=== PATIENT | female | born 1985 | race African-American/Black ===

== ENCOUNTER 2018-12-18 14:01 | Inpatient (IN) | payer OTHER ==
[2018-12-18 14:28] VITALS: BMI 22.6
--- NOTE | 2018-12-18 15:30 | HP ---
"CIWA Score Nausea/Vomitin-Int. Nausea w/Dry Heave (nausea w/ vomiting) Muscle Tremors: 3 Anxiety: 4-Mod. Anxious/Guarded Agitation: 4-Moderately Restless Paroxysmal Sweats: 3 (Increased facial moisture) Orientation: 1-Uncertain about Date Tacttile Disturbances: 0-None Auditory Disturbances: 0-None Visual Disturbances: 0-None Headache: 2-Mild CIWA-Ar Total Score: 21 - Admission Criteria OASAS Guidelines: Admission for Medically Managed Detox: Requires at least one of the followin. CIWA greater than 12 2. Seizures within the past 24 hours 3. Delirium tremens within the past 24 hours 4. Hallucinations within the past 24 hours 5. Acute intervention needed for co occurring medical disorder 6. Acute intervention needed for co occurring psychiatric disorder 7. Severe withdrawal that cannot be handled at a lower level of care (continued vomiting, continued diarrhea, abnormal vital signs) requiring intravenous medication and/or fluids 8. Patient presents the following: CIWA greater than 12 Admission Criteria Met: Admission criteria met Admission ROS [facility] - [facility] Chief Complaint: Alcohol withdrawal Allergies/Adverse Reactions: Allergies Allergy/AdvReac Type Severity Reaction Status Date / Time No Known Allergies Allergy Verified 12/18/18 14:21 History of Present Illness: States here for detox from heroin and alcohol. Alcohol use began at age 18. States drinks 3 -4 nips (approx 150-200 ml) daily. Crack use began at age 18. Uses IV Heroin use began at age 18. Intermittent relapse last few days IV. Denies sharing needles or works. On the H.E.L.P. MMTP x approx 5 months. - Current Methadone dose is 70 mg. State last taken this am at [facility]. Denies seizures or blackouts. Overdose x 2 - last OD about 4 months ago. Longest length of sobriety = 8 months. Was in [facility] for 1.5 days for evaluation of depression. PMHx: Fibromyalgia (states takes gabapentin), Hep C, burning w/ urination MHHx: Insomnia, Depression. Denies thoughts of harming self or others. [facility] has a MH Provider at [facility] Search Terms: Stephanie Moon, 1985 Search Date: 12/18/2018 03:26:18 PM The Drug Utilization Report below displays all of the controlled substance prescriptions, if any, that your patient has filled in the last twelve months. The information displayed on this report is compiled from pharmacy submissions to the Department, and accurately reflects the information as submitted by the pharmacies. This report was requested by: Clementina Johnson | Reference #: [id number] There are no results for the search terms that you entered. Patient Name: STEPHANIE MOON Date: 1985 Address: [address] [place] [address] Sex: Female Rx Written Rx Dispensed Drug Strength Quantity Days Supply Prescriber Name 12/02/2015 01/08/2016 LORAZEPAM 1 MG TABLET 90.0 30 TIFFANIE PHILLIPS, ROSSY Exam Limitations: No Limitations - Ebola screening Have you traveled outside of the country in the last 21 days: No (N) Have you had contact with anyone from an Ebola affected area: No Have you been sick,other than usual withdrawal symptoms: No (Denies recent measles exposure) Do you have a fever: No - Review of Systems Constitutional: Chills, Diaphoresis, Changes in sleep (Difficulty staying asleep. - States takes ambien) EENT: reports: Blurred Vision Respiratory: reports: No Symptoms reported Cardiac: reports: No Symptoms Reported GI: reports: Nausea, Vomiting, Abdominal cramping : reports: Burning (Burning w/ urination x 2-3 days) Musculoskeletal: reports: Other (Flexeril, neurontin for fibromyalgia.) Integumentary: reports: No Symptoms Reported Neuro: reports: Headache (Mild) Endocrine: reports: No Symptoms Reported Hematology: reports: No Symptoms Reported Psychiatric: reports: Judgement Intact, Orientated x3 (Unsure of exact date -), Agitated, Anxious, Depressed (Denies thoughts of harming self or others.) Patient History - PPD History Previous Implant?: Yes Documented Results: Negative w/o proof Implanted On Prior [facility] Admission?: No PPD to be Administered?: Yes - Reproductive History Patient is a Female of Child Bearing Age (11 -55 yrs old): Yes Last Menstrual Period: 12/18/18 Patient : No - Smoking Cessation Smoking history: Current every day smoker Have you smoked in the past 12 months: Yes Aproximately how many cigarettes per day: 20 Hx Chewing Tobacco Use: No Initiated information on smoking cessation: Yes 'Breaking Loose' booklet given: 12/18/18 - Substance & Tx. History Hx Alcohol Use: Yes Hx Substance Use: Yes Substance Use Type: Alcohol, Cocaine, Heroin Hx Substance Use Treatment: Yes (detox) - Substances abused Heroin Substance route: Injection Frequency: Daily Amount used: 10 bags /day Age of first use: 18 Date of last use: 12/17/18 Crack Substance route: Injection Frequency: Daily Amount used: $100/DAY Age of first use: 18 Date of last use: 12/17/18 Alcohol Substance route: Oral Frequency: Daily Amount used: 3-4 nips Age of first use: 18 Date of last use: 12/17/18 Admission Physical Exam [facility] - Vital Signs Vital Signs: Vital Signs - 24 hr 12/18/18 14:15 Temperature 98 F Pulse Rate 73 Respiratory 18 Rate Blood Pressure 118/76 - Physical General Appearance: Yes: Nourished, Mild Distress, Tremorous, Sweating ( Increased facial mositure), Anxious HEENTM: Yes: EOMI, Hearing grossly Normal, Normocephalic, Normal Voice, MARIA ESTHER ( Pupils = 2 mm), Pharynx Normal Respiratory: Yes: Lungs Clear, Normal Breath Sounds, No Respiratory Distress Neck: Yes: No masses,lesions,Nodules, Supple Breast: Yes: Breast Exam Deferred Cardiology: Yes: Regular Rhythm, Regular Rate, S1, S2 (Split) Abdominal: Yes: Flat, Soft, Increased Bowel Sounds, Tenderness (Epigastric tenderness upon palpatin. No guarding. No rebound.) Genitourinary: Yes: Burning Back: Yes: Normal Inspection Musculoskeletal: Yes: full range of Motion, Gait Steady Extremities: Yes: Normal Capillary Refill, Non-Tender, Tremors (Mild tremors of hands) Neurological: Yes: tool distributor II-XII NML intact, Fully Oriented, Alert, Motor Strength 5/5 Integumentary: Yes: Normal Color, Warm, Track Pugh Lymphatic: Yes: Within Normal Limits - Diagnostic (1) Alcohol dependence with uncomplicated withdrawal Current Visit: Yes Status: Acute (2) History of fibromyalgia Current Visit: Yes Status: Chronic (3) Nicotine dependence, uncomplicated Current Visit: Yes Status: Chronic Qualifiers: Nicotine product type: cigarettes Qualified Code(s): F17.210 - Nicotine dependence, cigarettes, uncomplicated (4) Cocaine dependence, uncomplicated Current Visit: Yes Status: Chronic (5) Methadone maintenance therapy patient Current Visit: Yes Status: Chronic Comment: Blaise OTP on Methadone (6) History of hepatitis C Current Visit: No Status: Chronic Comment: Not treated (7) Insomnia Current Visit: Yes Status: Acute Qualifiers: Insomnia type: unspecified Qualified Code(s): G47.00 - Insomnia, unspecified Cleared for Admission S - Detox or Rehab [facility] Level of Care: Medically Managed Detox Regimen/Protocol: Librium Claeared for Rehab Admission: No Breathalyzer - Breathalyzer Breathalyzer: 0 Urine Drug Screen - Test Device Lot number: [id number] Expiration date: 09/01/20 - Control Is test valid?: Yes - Results Drug screen NEGATIVE: No Urine drug screen results: LENARD-Cocaine, MTD-Methadone Inpatient Rehab Admission - Rehab Decision to Admit Inpatient rehab admission?: No"
[2018-12-18] MEDS ORDERED: MENTHOL/PHENOL 1 EACH UD MM PRN (16:13)
[2018-12-18] MEDS ORDERED: NICOTINE POLACRILEX 2 MG GUM BUC PRN (16:13)
[2018-12-18] MEDS ORDERED: BISMUTH SUBSALICYLATE 524 MG/30 ML UD PO PRN (16:13)
[2018-12-18] MEDS ORDERED: PROCHLORPERAZINE MALEATE 5 MG TABLET PO PRN (16:13)
[2018-12-18] MEDS ORDERED: MAGNESIUM HYDROX 2400MG/30ML ORAL SUSPENSION 30 ML CUP PO PRN (16:13)
[2018-12-18] MEDS ORDERED: ACETAMINOPHEN 325 MG TABLET (FP) PO PRN ×2 (16:13)
[2018-12-18] MEDS ORDERED: MELATONIN 5 MG TABLETS PO PRN ×2 (16:13→22:00)
[2018-12-18] MEDS ORDERED: MAG HYDROX/AL HYDROX/SIMETH 30 ML UNIT-DOSE CUP PO PRN (16:13)
[2018-12-18] MEDS ORDERED: MAGNESIUM CITRATE 300 ML BOTTLE PO PRN (16:13)
[2018-12-18] MEDS ORDERED: CYCLOBENZAPRINE HCL 5 MG TABLET PO PRN (16:16)
[2018-12-18] MEDS: PANTOPRAZOLE 20 MG TABLET (FP) PO SCH (17:25)
[2018-12-18] MEDS: chlordiazePOXIDE HCL 25 MG CAPSULE PO SCH ×2 (17:25→22:44)
[2018-12-18] MEDS: chlordiazePOXIDE HCL 25 MG CAPSULE PO PRN (19:39)
[2018-12-18] MEDS: IBUPROFEN 400 MG TABLET (FP) PO PRN (19:39)
[2018-12-18] MEDS ORDERED: THIAMINE HCL 100 MG TABLET (FP) PO SCH (22:00)
[2018-12-18] MEDS: GABAPENTIN 100 MG CAPSULE (FP) PO SCH (22:46)
[2018-12-19] MEDS: chlordiazePOXIDE HCL 25 MG CAPSULE PO PRN (01:47)
[2018-12-19] MEDS: chlordiazePOXIDE HCL 25 MG CAPSULE PO SCH ×2 (05:36→10:37)
[2018-12-19 09:59] LABS: ALBUMIN 3.3 g/dl (3.4-5.0); BILIRUBIN,TOTAL 0.3 mg/dL (0.2-1); CALCIUM 8.5 mg/dL (8.5-10.1); CREATININE 0.8 mg/dL (0.55-1.3); POTASSIUM 3.8 mmol/L (3.5-5.1)
[2018-12-19] MEDS ORDERED: PRENATAL VITAMINS W/ FOLIC ACID TABLET (FP) PO SCH (10:00)
[2018-12-19] MEDS ORDERED: METHADONE HCL 10 MG TABLET PO ONE (10:00)
[2018-12-19] MEDS ORDERED: NICOTINE 21 MG/24 HOURS TOPICAL PATCH TD SCH (10:00)
--- NOTE | 2018-12-19 10:05 | PN ---
S CIWA - CIWA Score Nausea/Vomitin-Mild Nausea/No Vomiting Muscle Tremors: 4-Moderate,w/Arms Extend Anxiety: 3 Agitation: 3 Paroxysmal Sweats: 1-Minimal Palms Moist Orientation: 2-Disoriented Date<2 days Tacttile Disturbances: 0-None Auditory Disturbances: 0-None Visual Disturbances: 0-None Headache: 2-Mild CIWA-Ar Total Score: 16 [facility] Progress Note (SOAP) Subjective: patient reporting that she is in methadone program taking 70 mg po daily methadone needed to be verified patient stated that she is taking ativan every two hours daily "my doctor prescribed for me" psychiatrist referral in place patient refuses to change librium to ativen "I want both" Objective: 12/19/18 10:04 Vital Signs Temperature 97.8 F 12/19/18 06:35 Pulse Rate 92 H 12/19/18 06:35 Respiratory Rate 16 12/19/18 06:35 Blood Pressure 95/64 12/19/18 06:35 O2 Sat by Pulse Oximetry (%) Laboratory Last Values Sodium 145 mmol/L (136-145) 12/19/18 07:00 Potassium 3.8 mmol/L (3.5-5.1) 12/19/18 07:00 Chloride 110 mmol/L (98-107) H 12/19/18 07:00 Carbon Dioxide 27 mmol/L (21-32) 12/19/18 07:00 Anion Gap 7 MMOL/L (8-16) L 12/19/18 07:00 BUN 13 mg/dL (7-18) 12/19/18 07:00 Creatinine 0.8 mg/dL (0.55-1.3) 12/19/18 07:00 Est GFR (CKD-EPI)AfAm 112.27 12/19/18 07:00 Est GFR (CKD-EPI)NonAf 96.87 12/19/18 07:00 Random Glucose 80 mg/dL (74-106) 12/19/18 07:00 Calcium 8.5 mg/dL (8.5-10.1) 12/19/18 07:00 Total Bilirubin 0.3 mg/dL (0.2-1) 12/19/18 07:00 AST 14 U/L (15-37) L 12/19/18 07:00 ALT 23 U/L (13-61) 12/19/18 07:00 Alkaline Phosphatase 59 U/L (45-117) 12/19/18 07:00 Total Protein 6.0 g/dl (6.4-8.2) L 12/19/18 07:00 Albumin 3.3 g/dl (3.4-5.0) L 12/19/18 07:00 POC Urine HCG, Qual Negative 12/18/18 14:50 lab noted Assessment: 12/19/18 10:04 alcohol withdrawal sx anxiety Plan: continue detox discuss risks of ativan + librium
[2018-12-19 10:14] LABS: HEMOGLOBIN 12.4 GM/dL (10.7-15.3); MCH 24.2 pg (25.7-33.7); MCHC 31.7 g/dl (32.0-36.0); MEAN CELL VOLUME 76.5 fl (80-96); PLATELET COUNT 173 K/MM3 (134-434); RDW 15.3 % (11.6-15.6); WHITE BLOOD COUNT 5.3 K/mm3 (4.0-10.0)
[2018-12-19] MEDS: GABAPENTIN 100 MG CAPSULE (FP) PO SCH (10:37)
[2018-12-19] MEDS: PANTOPRAZOLE 20 MG TABLET (FP) PO SCH (10:37)
[2018-12-19] MEDS ORDERED: METHADONE HCL 40 MG DISPERSABLE TABLET PO ONE (12:04)
--- NOTE | 2018-12-19 12:06 | CONSULT ---
[facility] Psychiatric Consult - Data Date of interview: 12/19/18 Admission source: [facility] Identifying data: First admission to [facility] for this 3 y/o AA female from [place] ancestry, self-referred for detoxification (opioid). Interviewed at [address] [place] [address]. Patient is single, no dependents, domiciled and currently employed. Substance Abuse History: Confirmed by the patient in this session. Details of addictions are described in current [facility] report : Smoking history: Current every day smoker. Have you smoked in the past 12 months: Yes. Aproximately how many cigarettes per day: 20. Hx Chewing Tobacco Use: No. Initiated information on smoking cessation: Yes. 'Breaking Loose' booklet given: 12/18/18. - Substance & Tx. History. Hx Alcohol Use: Yes. Hx Substance Use: Yes. Substance Use Type : Alcohol, Cocaine, Heroin. Hx Substance Use Treatment: Yes (detox). - Substances abused. Heroin. Substance route: Injection. Frequency: Daily. Amount used: 10 bags /day. Age of first use: 18. Date of last use: 12/17/18. Crack. Substance route: Injection. Frequency: Daily. Amount used: $100/ DAY. Age of first use: 18. Date of last use: 12/17/18. Alcohol. Substance route: Oral. Frequency: Daily. Amount used: 3-4 nips. Age of first use: 18. Date of last use: 12/17/18 Medical History: Remarkable for hepatitis C and fibromyalgia. Psychiatric History: No reported history of psychiatric hospitalizations. Patient indicates that she sees a psychiatrist at [facility] [place] [facility] for medication management (wellbutrin 300 mg/day + ativan 3 mg/day in divided doses + zolpidem 10 mg/hs. Diagnosed with MDD and Anxiety Disorder. Ms Moon is also on methadone maintenance (100 mg/day) at the [facility]). Denies history of sucide attempts. Physical/Sexual Abuse/Trauma History: Patient denies. Additional Comment: Urine drug screen results: LENARD-Cocaine, MTD-Methadone. Noted. Mental Status Exam - Mental Status Exam Alert and Oriented to: Time, Place, Person Cognitive Function: Good Patient Appearance: Well Groomed Mood: Nervous, Withdrawn, Anxious Affect: Mood Congruent Patient Behavior: Fatigued, Appropriate, Cooperative Speech Pattern: Clear Voice Loudness: Normal Thought Process: Intact, Goal Oriented Thought Disorder: Not Present Hallucinations: Denies Suicidal Ideation: Denies Homicidal Ideation: Denies Insight/Judgement: Poor Sleep: Poorly, Difficulty falling asleep Appetite: Good Gait/Station: Normal Psychiatric Findings - Problem List ([place] 1, 2,3) (1) Alcohol dependence with uncomplicated withdrawal Current Visit: Yes Status: Acute (2) Opioid dependence on agonist therapy Current Visit: Yes Status: Chronic (3) Cocaine dependence, uncomplicated Current Visit: Yes Status: Chronic (4) Nicotine dependence, uncomplicated Current Visit: Yes Status: Chronic Qualifiers: Nicotine product type: cigarettes Qualified Code(s): F17.210 - Nicotine dependence, cigarettes, uncomplicated (5) Substance induced mood disorder Current Visit: Yes Status: Chronic (6) History of depression Current Visit: Yes Status: Chronic (7) Insomnia Current Visit: Yes Status: Chronic Qualifiers: Insomnia type: unspecified Qualified Code(s): G47.00 - Insomnia, unspecified - Initial Treatment Plan Initial Treatment Plan: Psychoeducation. Sleep hygiene. AA/NA meetings. Detoxification in progress. Medications : seroquel 50 mg po hs + wellbutrin ( immediate release) 150 mg po bid at 10 am + 4 pm. Side effects/benefits of both drugs are discussed with the patient. Made aware of potential for seizures, sedation and metabolic syndrome. Patient endorses history of good tolerability and effectiveness. Consented verbally to adhere to this regimen. Observation.
[2018-12-19] MEDS ORDERED: buPROPion HCL 100 MG TABLET PO ONE (13:15)
[2018-12-19] MEDS: IBUPROFEN 400 MG TABLET (FP) PO PRN (13:26)
[2018-12-19 13:47] VITALS: BP 103/66; PULSE 89; TEMP 97.2
[2018-12-19] MEDS ORDERED: buPROPion HCL 75 MG TABLET PO SCH (16:00)
[2018-12-19] MEDS ORDERED: chlordiazePOXIDE HCL 25 MG CAPSULE PO SCH (17:00)
--- NOTE | 2018-12-19 20:32 | DS ---
[facility] Detox Discharge Summary Admission Date: 12/18/18 Discharge Date: 12/19/18 - History Present History: Alcohol Dependence, Cocaine Dependence, Opioid Dependence, MMTP Additional Comments: DESPITE EFFORTS BY JUSTICE COURT JUDGE AND BY NURSING STAFF TO ADDRESS PATIENT'S MEDICAL NEEDS / CONCERNS, PATIENT DOES NOT WISH TO REMAIN TO COMPLETE DETOX REGIMEN. RISKS OF LEAVING DETOX UNIT AGAINST MEDICAL ADVICE AND PRIOR TO COMPLETION OF DETOX REGIMEN EXPLAINED TO PATIENT. PATIENT ADVISED TO GO IMMEDIATELY TO NEAREST ER SHOULD ANY INTOLERABLE WITHDRAWAL / DETOX SYMPTOMS DEVELOP AT ANY TIME. PATIENT ALSO ADVISED TO FOLLOW-UP WITH [facility] ([place], [place]) SOON POSSIBLE AFTER DISCHARGE FROM DETOX FOR HISTORY OF METHADONE MAINTENANCE THERAPY. PATIENT VERBALIZED UNDERSTANDING OF ALL INFORMATION / RECOMMENDATIONS PRESENTED TO HIM PRIOR TO DEPARTURE FROM DETOX UNIT. PATIENT LEFT DETOX UNIT IN STABLE MEDICAL CONDITION. Pertinent Past History: Fibromyalgia, Hep C, Insomnia, History Of Depression, Nicotine Dependence, M.M.T.P. - Physical Exam Results Vital Signs: Vital Signs Temperature 97.2 F L 12/19/18 13:46 Pulse Rate 89 12/19/18 13:46 Respiratory Rate 18 12/19/18 13:46 Blood Pressure 103/66 12/19/18 13:46 O2 Sat by Pulse Oximetry (%) Pertinent Admission Physical Exam Findings: WITHDRAWAL SYMPTOMS. Laboratory Tests 12/18/18 12/19/18 12/19/18 14:50 07:00 07:00 WBC 5.3 RBC 5.10 Hgb 12.4 Hct 39.0 MCV 76.5 L MCH 24.2 L MCHC 31.7 L RDW 15.3 Plt Count 173 MPV 11.0 Sodium 145 Potassium 3.8 Chloride 110 H Carbon Dioxide 27 Anion Gap 7 L BUN 13 Creatinine 0.8 Est GFR (CKD-EPI)AfAm 112.27 Est GFR (CKD-EPI)NonAf 96.87 Random Glucose 80 Calcium 8.5 Total Bilirubin 0.3 AST 14 L ALT 23 Alkaline Phosphatase 59 Total Protein 6.0 L Albumin 3.3 L POC Urine HCG, Qual Negative RPR Titer 12/19/18 07:00 WBC RBC Hgb Hct MCV MCH MCHC RDW Plt Count MPV Sodium Potassium Chloride Carbon Dioxide Anion Gap BUN Creatinine Est GFR (CKD-EPI)AfAm Est GFR (CKD-EPI)NonAf Random Glucose Calcium Total Bilirubin AST ALT Alkaline Phosphatase Total Protein Albumin POC Urine HCG, Qual RPR Titer Nonreactive LABS NOTED. - Treatment Hospital Course: Detox Protocol Followed, Detoxed Safely - Medication Discharge Medications: Ambulatory Orders Bupropion HCl [Wellbutrin -] 300 mg PO DAILY 12/18/18 - Diagnosis (1) Alcohol dependence with uncomplicated withdrawal Status: Acute (2) Cocaine dependence, uncomplicated Status: Chronic (3) History of fibromyalgia Status: Chronic (4) History of hepatitis C Status: Chronic (5) Insomnia Status: Chronic Qualifiers: Insomnia type: unspecified Qualified Code(s): G47.00 - Insomnia, unspecified (6) Methadone maintenance therapy patient Status: Chronic (7) Nicotine dependence, uncomplicated Status: Chronic Qualifiers: Nicotine product type: cigarettes Qualified Code(s): F17.210 - Nicotine dependence, cigarettes, uncomplicated (8) History of depression Status: Chronic (9) Opioid dependence on agonist therapy Status: Chronic (10) Substance induced mood disorder Status: Chronic - AMA Did Patient Leave Against Medical Advice: Yes (PATIENT DID NOT WISH TO REMAIN TO COMPELTE DETOX REGIMEN.)
[2018-12-19] MEDS ORDERED: QUEtiapine FUMARATE 50 MG TABLET PO SCH (22:00)
[2018-12-20] MEDS ORDERED: METHADONE HCL 10 MG TABLET PO SCH (06:00)
[2018-12-20] MEDS ORDERED: METHADONE HCL 40 MG DISPERSABLE TABLET PO SCH (06:00)
--- NOTE | 2018-12-20 12:13 | EKG ---
Test Reason : Blood Pressure : / mmHG Vent. Rate : 069 BPM Atrial Rate : 069 BPM P-R Int : 176 ms QRS Dur : 094 ms QT Int : 398 ms P-R-T Axes : 057 081 054 degrees QTc Int : 426 ms NORMAL SINUS RHYTHM NORMAL ECG NO PREVIOUS ECGS AVAILABLE Confirmed by MD Sha, Brennen ([id number]) on 12/20/2018 12:13:16 PM Referred By: LONNIE HENDERSON Confirmed By:Brennen Dalton MD
[2018-12-20] MEDS ORDERED: chlordiazePOXIDE HCL 10 MG CAPSULE PO SCH (17:00)
[2018-12-20] MEDS ORDERED: chlordiazePOXIDE HCL 10 MG CAPSULE PO PRN (17:00)
[2018-12-21] MEDS ORDERED: chlordiazePOXIDE HCL 10 MG CAPSULE PO SCH (17:00)
== END 2018-12-19 17:13 | disposition left against medical advice (07) | DRG 894 ==
LOC: YASAS 14:01 → Y3N 15:58
PROVIDERS: ADMIT Surgery; ATTEND Surgery
PROC: HZ2ZZZZ Detoxification Services for Substance Abuse Treatment (ICD-10-PCS; principal; 2018-12-18)
DX: F10.230 Alcohol dependence with withdrawal, uncomplicated (principal); F11.20 Opioid dependence, uncomplicated; F14.20 Cocaine dependence, uncomplicated; F17.213 Nicotine dependence, cigarettes, with withdrawal; F19.24 Other psychoactive substance dependence with psychoactive substance-induced mood disorder; F41.9 Anxiety disorder, unspecified; F32.9 Major depressive disorder, single episode, unspecified; G47.00 Insomnia, unspecified; B18.2 Chronic viral hepatitis C; Z86.59 Personal history of other mental and behavioral disorders; Z87.39 Personal history of other diseases of the musculoskeletal system and connective tissue
CPT/HCPCS: 36415; 80053; 81025; 85027; 86593; 93005; 93010

== ENCOUNTER 2019-01-10 08:55 | Inpatient (IN) | payer OTHER ==
[2019-01-10 09:48] VITALS: BMI 21.4
--- NOTE | 2019-01-10 11:15 | HP ---
COWS - Scale Resting Pulse: 2= MN 101-120 Sweatin= Chills/Flushing Restless Observation: 0= Sits Still Pupil Size: 0= Normal to Room Light Bone or Joint Aches: 4=Acute Joint/Muscle Pain Runny Nose/ Eye Tearin= Runny Nose/Eyes GI Upset > 30mins: 2= Nausea/Diarrhea Tremor Observation: 0= None Yawning Observation: 0= None Anxiety or Irritability: 2=Irritable/Anxious Goose Flesh Skin: 0=Smooth Skin COWS Score: 13 CIWA Score Nausea/Vomitin Muscle Tremors: 1-None Visible, but [place] Anxiety: 4-Mod. Anxious/Guarded Agitation: 0-Normal Activity Paroxysmal Sweats: 2 Orientation: 1-Uncertain about Date Tacttile Disturbances: 0-None Auditory Disturbances: 0-None Visual Disturbances: 0-None Headache: 2-Mild CIWA-Ar Total Score: 12 - Admission Criteria OASAS Guidelines: Admission for Medically Managed Detox: Requires at least one of the followin. CIWA greater than 12 2. Seizures within the past 24 hours 3. Delirium tremens within the past 24 hours 4. Hallucinations within the past 24 hours 5. Acute intervention needed for co occurring medical disorder 6. Acute intervention needed for co occurring psychiatric disorder 7. Severe withdrawal that cannot be handled at a lower level of care (continued vomiting, continued diarrhea, abnormal vital signs) requiring intravenous medication and/or fluids 8. Admission [facility] Allergies/Adverse Reactions: Allergies Allergy/AdvReac Type Severity Reaction Status Date / Time No Known Allergies Allergy Verified 01/10/19 09:39 History of Present Illness: pt here requesting 2 pints liquor /day since 2 weeks ago , prior to which she was not drinking " that much " , denies seizures or tremors , latest use this morning , current symptoms as above heroin : 10 bags/day ivdu in hands , needles from the store , denies sharing or re-using , latest use this morning , current symptoms as above , first age of use 18 cocaine : unable to quantify . pt is very poor historian , asleep , arousable by verbal stimuli for brief moments then falls back asleep . tobacco : 1/2 ppd PMHX : denies meds : denies lmp 4 weeks ago , no children Search Terms: gerardo olmstead, 12/12/1984 Search Date: 01/10/2019 12:46:50 PM The Drug Utilization Report below displays all of the controlled substance prescriptions, if any, that your patient has filled in the last twelve months. The information displayed on this report is compiled from pharmacy submissions to the Department, and accurately reflects the information as submitted by the pharmacies. This report was requested by: Rianna Ramos | Reference #: [id number] There are no results for the search terms that you entered. Exam Limitations: Clinical Condition, Intoxication - Ebola screening Have you traveled outside of the country in the last 21 days: No (N) Have you had contact with anyone from an Ebola affected area: No Do you have a fever: No - Review of Systems Constitutional: See HPI EENT: reports: See HPI Respiratory: reports: See HPI Cardiac: reports: No Symptoms Reported GI: reports: No Symptoms Reported : reports: No Symptoms Reported Musculoskeletal: reports: See HPI Integumentary: reports: See HPI Neuro: reports: See HPI, Other (drowsy , falls asleep throughout interview , awakened by verbal stimuli) Endocrine: reports: No Symptoms Reported Psychiatric: reports: Disorientated Patient History - Patient Medical History Hx Asthma: No Hx Chronic Obstructive Pulmonary Disease (COPD): No Hx Cardiac Disorders: No Hx Hypertension: No Hx Seizures: No Hx Diabetes: No Hx Gastrointestinal Disorders: No Hx Genitourinary Disorders: No Hx Sexually Transmitted Disorders: No Hx Renal Disease (ESRD): No Hx Depression: Yes Hx Suicide Attempt: No Hx Schizophrenia: No - Patient Surgical History Past Surgical History: No - PPD History Date: 12/20/18 - Reproductive History Last Menstrual Period: 12/18/18 - Smoking Cessation Smoking history: Current every day smoker Have you smoked in the past 12 months: Yes Aproximately how many cigarettes per day: 20 Hx Chewing Tobacco Use: No Initiated information on smoking cessation: No - Substances abused Heroin Substance route: Injection Frequency: Daily Amount used: 10 bags /day Age of first use: 18 Date of last use: 01/10/19 Crack Substance route: Smoking Frequency: Daily Amount used: 10BAGS Age of first use: 33 Date of last use: 01/10/19 Alcohol Substance route: Oral Frequency: Daily Amount used: 2 PTS VODKA Age of first use: 18 Date of last use: 01/09/19 Family Disease History - Family Disease History Family History: Unable to Obtain Admission Physical Exam [facility] - Vital Signs Vital Signs: Vital Signs - 24 hr 01/10/19 09:39 Temperature 99.2 F Pulse Rate 102 H Respiratory 18 Rate Blood Pressure 114/70 - Physical General Appearance: Yes: Disheveled, Intoxicated HEENTM: Yes: EOMI, Hearing grossly Normal, Normocephalic, Normal Voice, Nasal Congestion, Rhinorrhea Respiratory: Yes: Lungs Clear, Normal Breath Sounds, No Respiratory Distress, No Accessory Muscle Use Neck: Yes: No masses,lesions,Nodules, Trachea in good position Cardiology: Yes: Regular Rhythm, Regular Rate, S1, S2, Tachycardia Abdominal: Yes: Non Tender, Soft Musculoskeletal: Yes: Back pain, Muscle Pain Extremities: Yes: Normal Range of Motion, Non-Tender Neurological: Yes: Confused, Disoriented, Depressed Affect Integumentary: Yes: Warm, Track Pugh (dorsum of bilateral hands) - Diagnostic (1) Opioid dependence Current Visit: Yes Status: Acute Qualifiers: Substance use status: with intoxication (2) Alcohol dependence with uncomplicated withdrawal Current Visit: Yes Status: Acute (3) Nicotine dependence, uncomplicated Current Visit: Yes Status: Chronic Qualifiers: Nicotine product type: cigarettes Qualified Code(s): F17.210 - Nicotine dependence, cigarettes, uncomplicated (4) Cocaine dependence, uncomplicated Current Visit: Yes Status: Chronic Breathalyzer - Breathalyzer Breathalyzer: 0 Urine Drug Screen - Test Device Lot number: [id number] Expiration date: 09/29/20 - Control Is test valid?: Yes - Results Drug screen NEGATIVE: No Urine drug screen results: LENARD-Cocaine, FEN-Fentanyl, MOP-Opiates, MTD-Methadone , BZO-Benzodiazepines Inpatient Rehab Admission - Rehab Decision to Admit Inpatient rehab admission?: No
[2019-01-10] MEDS ORDERED: NICOTINE POLACRILEX 2 MG GUM BUC PRN (13:09)
[2019-01-10] MEDS ORDERED: MAGNESIUM HYDROX 2400MG/30ML ORAL SUSPENSION 30 ML CUP PO PRN (13:09)
[2019-01-10] MEDS ORDERED: MELATONIN 5 MG TABLETS PO PRN (13:09)
[2019-01-10] MEDS ORDERED: hydrOXYzine PAMOATE 25 MG CAPSULE (FP) PO PRN (13:09)
[2019-01-10] MEDS ORDERED: MENTHOL/PHENOL 1 EACH UD MM PRN (13:09)
[2019-01-10] MEDS ORDERED: IBUPROFEN 400 MG TABLET (FP) PO PRN (13:09)
[2019-01-10] MEDS ORDERED: ACETAMINOPHEN 325 MG TABLET (FP) PO PRN ×2 (13:09)
[2019-01-10] MEDS ORDERED: MAG HYDROX/AL HYDROX/SIMETH 30 ML UNIT-DOSE CUP PO PRN (13:09)
[2019-01-10] MEDS ORDERED: BISMUTH SUBSALICYLATE 262 MG/15 ML BTL PO PRN (13:09)
[2019-01-10] MEDS ORDERED: MAGNESIUM CITRATE 300 ML BOTTLE PO PRN (13:09)
[2019-01-10] MEDS ORDERED: diazePAM 5 MG TABLET PO PRN (13:13)
[2019-01-10] MEDS ORDERED: cloNIDine HCL 0.1 MG TABLET PO PRN (13:14)
[2019-01-10] MEDS: diazePAM 5 MG TABLET PO SCH ×2 (15:14→23:06)
--- NOTE | 2019-01-10 16:59 | EKG ---
Test Reason : Blood Pressure : / mmHG Vent. Rate : 097 BPM Atrial Rate : 097 BPM P-R Int : 172 ms QRS Dur : 092 ms QT Int : 332 ms P-R-T Axes : 044 082 037 degrees QTc Int : 421 ms NORMAL SINUS RHYTHM NORMAL ECG WHEN COMPARED WITH ECG OF 18-DEC-2018 15:52, NO SIGNIFICANT CHANGE WAS FOUND Confirmed by MD Salgado Daniel ([id number]) on 01/10/2019 4:58:47 PM Referred By: Confirmed By:Madi Salgado MD
[2019-01-10] MEDS ORDERED: THIAMINE HCL 100 MG TABLET (FP) PO SCH (22:00)
[2019-01-10] MEDS ORDERED: METHADONE HCL 10 MG TABLET (FOR DETOX USE ONLY) PO ONE (23:00)
[2019-01-11] MEDS: diazePAM 5 MG TABLET PO SCH (06:20)
[2019-01-11] MEDS ORDERED: chlordiazePOXIDE HCL 25 MG CAPSULE PO PRN (08:15)
[2019-01-11 08:26] VITALS: BP 106/49; PULSE 68; TEMP 96.8
--- NOTE | 2019-01-11 08:48 | PN ---
[facility] Progress Note Note: pt found out that her family member who is on same unit is signing out now she wants to leave. Pt had insisted on leaving because she wants to get high. Earlier today pt had asked to have her regimen changed from valium to librium because it has helped in the past and her medication regimen was changed as per her request. Pt was spoken to that she will be safe here and her medication was changed but she still insisted on leaving. Pt signed out AMA.
[2019-01-11] MEDS ORDERED: PRENATAL VITAMINS W/ FOLIC ACID TABLET (FP) PO SCH (10:00)
[2019-01-11] MEDS ORDERED: METHADONE HCL 10 MG TABLET (FOR DETOX USE ONLY) PO ONE (10:00)
[2019-01-11] MEDS ORDERED: chlordiazePOXIDE HCL 25 MG CAPSULE PO SCH (11:00)
[2019-01-11] MEDS ORDERED: PNEUMOC 13-VAL CONJ-DIP CRM/PF 0.5 ML DISP.SYRIN IM ONE (12:00)
[2019-01-11] MEDS ORDERED: PNEUMOCOCCAL 23 VACCINE 0.5 ML VIAL IM ONE (12:00)
[2019-01-11] MEDS ORDERED: diazePAM 5 MG TABLET PO SCH (14:00)
[2019-01-12] MEDS ORDERED: diazePAM 5 MG TABLET PO ONE (06:00)
[2019-01-12] MEDS ORDERED: METHADONE HCL 10 MG TABLET (FOR DETOX USE ONLY) PO ONE (10:00)
[2019-01-12] MEDS ORDERED: chlordiazePOXIDE HCL 25 MG CAPSULE PO SCH (11:00)
[2019-01-13] MEDS ORDERED: METHADONE HCL 10 MG TABLET (FOR DETOX USE ONLY) PO ONE (10:00)
[2019-01-13] MEDS ORDERED: chlordiazePOXIDE HCL 10 MG CAPSULE PO SCH (11:00)
[2019-01-14] MEDS ORDERED: METHADONE HCL 5 MG TABLET (FOR DETOX USE ONLY) PO ONE (06:00)
[2019-01-14] MEDS ORDERED: chlordiazePOXIDE HCL 10 MG CAPSULE PO SCH (11:00)
== END 2019-01-11 09:08 | disposition left against medical advice (07) | DRG 894 ==
LOC: YASAS 08:55 → Y6N 13:36
PROVIDERS: ADMIT Surgery; ATTEND Surgery
PROC: HZ2ZZZZ Detoxification Services for Substance Abuse Treatment (ICD-10-PCS; principal; 2019-01-10)
DX: F10.230 Alcohol dependence with withdrawal, uncomplicated (principal); F11.20 Opioid dependence, uncomplicated; F14.20 Cocaine dependence, uncomplicated; F17.210 Nicotine dependence, cigarettes, uncomplicated
CPT/HCPCS: 81025; 93005; 93010

== ENCOUNTER 2019-01-24 19:51 | Inpatient (IN) | payer OTHER ==
[2019-01-24 23:21] VITALS: BMI 20.2
--- NOTE | 2019-01-25 01:20 | HP ---
"COWS - Scale Resting Pulse: 0= [place] 80 or Below Sweatin=Flushed/Facial Moisture Restless Observation: 1= Difficult to Sit Still Pupil Size: 2= Moderately Dilated (Pupils = 5 mm) Bone or Joint Aches: 1= Mild Discomfort Runny Nose/ Eye Tearin= Runny Nose/Eyes GI Upset > 30mins: 1= Stomach Cramp Tremor Observation: 2= Slight Tremor Visible Yawning Observation: 1= 1-2x During Session Anxiety or Irritability: 1=Feels Anxious/Irritable Goose Flesh Skin: 0=Smooth Skin COWS Score: 13 CIWA Score Nausea/Vomitin-Mild Nausea/No Vomiting Muscle Tremors: 3 (Slight tremors visible) Anxiety: 2 Agitation: 2 Paroxysmal Sweats: 3 (Increased facial moisture) Orientation: 1-Uncertain about Date Tacttile Disturbances: 0-None Auditory Disturbances: 0-None Visual Disturbances: 0-None Headache: 3-Moderate (sharp headache in middle of head.) CIWA-Ar Total Score: 15 - Admission Criteria OASAS Guidelines: Admission for Medically Managed Detox: Requires at least one of the followin. CIWA greater than 12 2. Seizures within the past 24 hours 3. Delirium tremens within the past 24 hours 4. Hallucinations within the past 24 hours 5. Acute intervention needed for co occurring medical disorder 6. Acute intervention needed for co occurring psychiatric disorder 7. Severe withdrawal that cannot be handled at a lower level of care (continued vomiting, continued diarrhea, abnormal vital signs) requiring intravenous medication and/or fluids 8. Patient presents the following: CIWA greater than 12 Admission Criteria Met: Admission criteria met Admission ROS [facility] Chief Complaint: having heroin and alcohol withdrawal. Allergies/Adverse Reactions: Allergies Allergy/AdvReac Type Severity Reaction Status Date / Time No Known Allergies Allergy Verified 01/24/19 23:12 History of Present Illness: 33 yo presents for detox w/ a hx alcohol, benzo, and opiate use disorder. Patient last here in November and December 2018 and signed out AMA the day after both admissions. Alcohol use began at age 15. States now drinks 2 Pints vodka daily. Crack use began at age 18. Smokes. Heroin use began at age 18. States current use is 10 bags/day IV. Denies sharing needles or works. States left the [facility] program after last admission. Ativan use occ about 5 mg/day. Nicotine use 2 cig/day. Suboxone - [facility] took this am Methadone - [facility] took yesterday. Denies seizures or blackouts. Overdose x 2 - last OD about 4 months ago. Longest length of sobriety = 8 months. PMHx: Fibromyalgia (states takes gabapentin), Hep C, MHHx: Insomnia, Depression. Denies thoughts of harming self or others. [facility] takes [facility] and [facility]ilify. [facility] has a MH Provider at . [facility] Search Terms: Melisa Mono, 1985 Search Date: 01/25/2019 01:18:24 AM The Drug Utilization Report below displays all of the controlled substance prescriptions, if any, that your patient has filled in the last twelve months. The information displayed on this report is compiled from pharmacy submissions to the Department, and accurately reflects the information as submitted by the pharmacies. This report was requested by: Clementina Johnson | Reference #: [id number] There are no results for the search terms that you entered. Exam Limitations: No Limitations - Ebola screening Have you traveled outside of the country in the last 21 days: No (N) Have you had contact with anyone from an Ebola affected area: No Have you been sick,other than usual withdrawal symptoms: No (Denies recent exposure to measles) Do you have a fever: No - Review of Systems Constitutional: Chills, Diaphoresis, Changes in sleep (Difficulty falling asleep ) EENT: reports: Nose Congestion Respiratory: reports: No Symptoms reported Cardiac: reports: No Symptoms Reported GI: reports: Nausea, Indigestion (Occ heart burn) : reports: Other (Slow urination. Denies blood, burning or pain.) Musculoskeletal: reports: Back Pain (Upper and lower back pain r/t being sick.) Integumentary: reports: No Symptoms Reported Neuro: reports: Headache (sharp headache in middle of head. Denies hx) Endocrine: reports: No Symptoms Reported Hematology: reports: No Symptoms Reported Psychiatric: reports: Judgement Intact, Orientated x3, Agitated, Anxious, Depressed (Denies thoughts of harming self or others.) Patient History - Patient Medical History Hx Asthma: No Hx Chronic Obstructive Pulmonary Disease (COPD): No Hx Cardiac Disorders: No Hx Hypertension: No Hx Seizures: No Hx Diabetes: No Hx Gastrointestinal Disorders: No Hx Genitourinary Disorders: No Hx Sexually Transmitted Disorders: No Hx Renal Disease (ESRD): No Hx Depression: Yes Hx Suicide Attempt: No Hx Schizophrenia: No - Patient Surgical History Past Surgical History: No Hx Neurologic Surgery: No Hx Cataract Extraction: No Hx Cardiac Surgery: No Hx Lung Surgery: No Hx Breast Surgery: No Hx Breast Biopsy: No Hx Abdominal Surgery: No Hx Appendectomy: No Hx Cholecystectomy: No Hx Genitourinary Surgery: No Hx Section: No Hx Orthopedic Surgery: No Anesthesia Reaction: No - PPD History Previous Implant?: Yes Implanted On Prior [facility] Admission?: Yes Date: 12/20/18 Results: Not read PPD to be Administered?: No - Reproductive History Patient is a Female of Child Bearing Age (11 -55 yrs old): Yes Last Menstrual Period: 12/18/18 Patient : No - Smoking Cessation Smoking history: Current every day smoker Have you smoked in the past 12 months: Yes Aproximately how many cigarettes per day: 2 Hx Chewing Tobacco Use: No Initiated information on smoking cessation: Yes 'Breaking Loose' booklet given: 01/25/19 - Substance & Tx. History Hx Alcohol Use: Yes Hx Substance Use: Yes Substance Use Type: Alcohol, Cocaine, Heroin, Opiates, Tranquilizers Hx Substance Use Treatment: Yes (detox, past [facility]) - Substances abused Heroin Substance route: Injection Frequency: Daily Amount used: 10 bags /day Age of first use: 18 Date of last use: 01/24/19 Crack Substance route: Smoking Frequency: Daily Amount used: 10 bags Age of first use: 33 Date of last use: 01/24/19 Alcohol Substance route: Oral Frequency: Daily Amount used: 2 PTS VODKA Age of first use: 18 Date of last use: 01/24/19 Other Other (specify): Ativan Substance route: Oral Frequency: 3-6 times per week Amount used: 5 mg Age of first use: 18 Date of last use: 01/24/19 Admission Physical Exam [facility] - Vital Signs Vital Signs: Vital Signs - 24 hr 01/24/19 23:14 Temperature 98.1 F Pulse Rate 71 Respiratory 18 Rate Blood Pressure 105/69 - Physical General Appearance: Yes: Mild Distress, Thin, Tremorous (Slight tremors visible) , Irritable, Sweating (Increased facial moisture), Anxious HEENTM: Yes: EOMI (Jerking movement of eyes upon lateral gaze), Hearing grossly Normal, Normocephalic, Normal Voice, MARIA ESTHER (Pupils = 5 mm), Pharynx Normal, Nasal Congestion, Rhinorrhea Respiratory: Yes: Lungs Clear, Normal Breath Sounds, No Respiratory Distress Neck: Yes: No masses,lesions,Nodules, Supple Breast: Yes: Breast Exam Deferred Cardiology: Yes: Regular Rate, S1, S2, Irregular Abdominal: Yes: Non Tender, Flat, Soft, Increased Bowel Sounds Genitourinary: Yes: Within Normal Limits Back: Yes: Normal Inspection Musculoskeletal: Yes: full range of Motion, Gait Steady Extremities: Yes: Normal Capillary Refill, Normal Range of Motion, Tremors ( Slight tremors visible) Neurological: Yes: 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 NML intact (Jerking movement of eyes upon lateral gaze), Alert, Motor Strength 5/5, Normal Response Integumentary: Yes: Normal Color, Warm, Track Pugh (w/o increased warmth or erythema), Other (Superficial abrasions both heels (L) > (R).) Lymphatic: Yes: Within Normal Limits - Diagnostic (1) Opioid dependence with withdrawal Current Visit: Yes Status: Acute Comment: States no longer on [facility]MTP (2) Alcohol dependence with uncomplicated withdrawal Current Visit: Yes Status: Acute (3) Cocaine dependence, uncomplicated Current Visit: Yes Status: Chronic (4) History of fibromyalgia Current Visit: Yes Status: Chronic (5) History of hepatitis C Current Visit: Yes Status: Chronic Comment: Not treated (6) Nicotine dependence, uncomplicated Current Visit: Yes Status: Chronic Qualifiers: Nicotine product type: cigarettes Qualified Code(s): F17.210 - Nicotine dependence, cigarettes, uncomplicated (7) Sedative, hypnotic or anxiolytic use disorder, mild, abuse Current Visit: Yes Status: Acute (8) Abrasion of heel Current Visit: Yes Status: Chronic Qualifiers: Encounter type: subsequent encounter Laterality: unspecified laterality Qualified Code(s): S90.819D - Abrasion, unspecified foot, subsequent encounter Comment: Both heels Cleared for Admission S - Detox or Rehab [facility] Level of Care: Medically Managed Detox Regimen/Protocol: Methadone/Librium Claeared for Rehab Admission: No Breathalyzer - Breathalyzer Breathalyzer: 0 Urine Drug Screen - Test Device Lot number: [id number] Expiration date: 09/29/20 - Control Is test valid?: Yes - Results Drug screen NEGATIVE: No Urine drug screen results: LENARD-Cocaine, FEN-Fentanyl, MOP-Opiates, MTD-Methadone , BZO-Benzodiazepines Inpatient Rehab Admission - Rehab Decision to Admit Inpatient rehab admission?: No"
[2019-01-25] MEDS ORDERED: MAGNESIUM HYDROX 2400MG/30ML ORAL SUSPENSION 30 ML CUP PO PRN (02:08)
[2019-01-25] MEDS ORDERED: MAG HYDROX/AL HYDROX/SIMETH 30 ML UNIT-DOSE CUP PO PRN (02:08)
[2019-01-25] MEDS ORDERED: MELATONIN 5 MG TABLETS PO PRN (02:08)
[2019-01-25] MEDS ORDERED: ACETAMINOPHEN 325 MG TABLET (FP) PO PRN ×2 (02:08)
[2019-01-25] MEDS ORDERED: NICOTINE POLACRILEX 2 MG GUM BUC PRN (02:08)
[2019-01-25] MEDS ORDERED: cloNIDine HCL 0.1 MG TABLET PO PRN (02:08)
[2019-01-25] MEDS ORDERED: MAGNESIUM CITRATE 300 ML BOTTLE PO PRN (02:08)
[2019-01-25] MEDS ORDERED: BISMUTH SUBSALICYLATE 524 MG/30 ML UD PO PRN (02:08)
[2019-01-25] MEDS ORDERED: chlordiazePOXIDE HCL 25 MG CAPSULE PO ONE (02:08)
[2019-01-25] MEDS ORDERED: MENTHOL/PHENOL 1 EACH UD MM PRN (02:08)
[2019-01-25] MEDS ORDERED: METHOCARBAMOL 500 MG TABLET PO PRN (02:08)
[2019-01-25] MEDS ORDERED: IBUPROFEN 400 MG TABLET (FP) PO PRN (02:08)
[2019-01-25] MEDS ORDERED: METHADONE HCL 10 MG TABLET (FOR DETOX USE ONLY) PO ONE ×2 (02:15→10:00)
[2019-01-25] MEDS ORDERED: chlordiazePOXIDE HCL 10 MG CAPSULE PO ONE (02:45)
[2019-01-25] MEDS: chlordiazePOXIDE HCL 25 MG CAPSULE PO SCH ×3 (06:35→22:31)
[2019-01-25] MEDS: PRENATAL VITAMINS W/ FOLIC ACID TABLET (FP) PO SCH (09:57)
[2019-01-25 10:03] LABS: ALBUMIN 3.2 g/dl (3.4-5.0); BILIRUBIN,TOTAL 0.9 mg/dL (0.2-1); BLOOD UREA NITROGEN 10.3 mg/dL (7-18); CALCIUM 8.9 mg/dL (8.5-10.1); CREATININE 0.7 mg/dL (0.55-1.3); POTASSIUM 4.2 mmol/L (3.5-5.1); TOT PROT 6.4 g/dl (6.4-8.2)
[2019-01-25 10:07] LABS: HEMATOCRIT 37.1 % (32.4-45.2); MCHC 32.3 g/dl (32.0-36.0); MEAN CELL VOLUME 74.4 fl (80-96); MEAN PLT VOLUME 10.7 fl (7.5-11.1); PLATELET COUNT 276 K/MM3 (134-434); RBC 4.99 M/mm3 (3.60-5.2); RDW 14.9 % (11.6-15.6); WHITE BLOOD COUNT 4.1 K/mm3 (4.0-10.0)
--- NOTE | 2019-01-25 11:45 | PN ---
[facility] CIWA - CIWA Score Nausea/Vomitin-Mild Nausea/No Vomiting Muscle Tremors: 2 Anxiety: 1-Mildly Anxious Agitation: 1-Slight > Activity Paroxysmal Sweats: 1-Minimal Palms Moist Orientation: 0-Oriented Tacttile Disturbances: 0-None Auditory Disturbances: 7Continuous Hallucination Headache: 0-None Present S COWS - Scale Resting Pulse: 1= [place] 81-100 Sweatin= Chills/Flushing Restless Observation: 1= Difficult to Sit Still Pupil Size: 1= Pupils >than Normal Bone or Joint Aches: 1= Mild Discomfort Runny Nose/ Eye Tearin= Nasal Congestion GI Upset > 30mins: 1= Stomach Cramp Tremor Observation of Outstretched Hands: 1= Tremor [place], Not Seen Yawning Observation: 1= 1-2x During Session Anxiety or Irritability: 1=Feels Anxious/Irritable Goose Flesh Skin: 0=Smooth Skin COWS Score: 10 S Progress Note (SOAP) Subjective: pt admitted early this morning, states feeling tired, withdrawal is better O: Vital Signs - 24 hr 01/24/19 01/25/19 23:14 07:04 Temperature 98.1 F 97.2 F L Pulse Rate 71 54 L Respiratory 18 16 Rate Blood Pressure 105/69 113/51 L Laboratory Tests 01/25/19 01/25/19 07:00 07:00 WBC 4.1 RBC 4.99 Hgb 12.0 Hct 37.1 MCV 74.4 L MCH 24.0 L MCHC 32.3 RDW 14.9 Plt Count 276 D MPV 10.7 Sodium 142 Potassium 4.2 Chloride 112 H Carbon Dioxide 24 Anion Gap 6 L BUN 10.3 Creatinine 0.7 Est GFR (CKD-EPI)AfAm 131.94 Est GFR (CKD-EPI)NonAf 113.84 Random Glucose 79 Calcium 8.9 Total Bilirubin 0.9 AST 34 ALT 22 Alkaline Phosphatase 61 Total Protein 6.4 Albumin 3.2 L labs WNL, VS WNL a/p: AUD and OUD: pt doing well with detox protocols, arrived a few hours ago to unit
[2019-01-25] MEDS: THIAMINE HCL 100 MG TABLET (FP) PO SCH (22:31)
[2019-01-26] MEDS: chlordiazePOXIDE 5 MG CAPSULE PO SCH ×3 (05:54→22:24)
[2019-01-26] MEDS ORDERED: METHADONE HCL 10 MG TABLET (FOR DETOX USE ONLY) PO ONE (10:00)
--- NOTE | 2019-01-26 10:57 | PN ---
S CIWA - CIWA Score Nausea/Vomitin Muscle Tremors: 2 Anxiety: 2 Agitation: 2 Paroxysmal Sweats: 1-Minimal Palms Moist Orientation: 0-Oriented Tacttile Disturbances: 1-Very Mild Itch/Numbness Auditory Disturbances: 1-Very Mild Visual Disturbances: 0-None Headache: 2-Mild CIWA-Ar Total Score: 13 BHS COWS - Scale Resting Pulse: 0= [place] 80 or Below Sweatin= Chills/Flushing Restless Observation: 1= Difficult to Sit Still Pupil Size: 1= Pupils >than Normal Bone or Joint Aches: 1= Mild Discomfort Runny Nose/ Eye Tearin= Runny Nose/Eyes GI Upset > 30mins: 2= Nausea/Diarrhea Tremor Observation of Outstretched Hands: 2= Slight Tremor Visible Yawning Observation: 1= 1-2x During Session Anxiety or Irritability: 2=Irritable/Anxious Goose Flesh Skin: 0=Smooth Skin COWS Score: 13 S Progress Note (SOAP) Subjective: alert,irritable,anxious,interrupted sleep,pain in the body and back,tremor Objective: 01/26/19 10:56 Vital Signs Temperature 98.1 F 01/26/19 09:15 Pulse Rate 80 01/26/19 09:15 Respiratory Rate 14 01/26/19 09:15 Blood Pressure 98/55 L 01/26/19 09:15 O2 Sat by Pulse Oximetry (%) Laboratory Last Values WBC 4.1 K/mm3 (4.0-10.0) 01/25/19 07:00 RBC 4.99 M/mm3 (3.60-5.2) 01/25/19 07:00 Hgb 12.0 GM/dL (10.7-15.3) 01/25/19 07:00 Hct 37.1 % (32.4-45.2) 01/25/19 07:00 MCV 74.4 fl (80-96) L 01/25/19 07:00 MCH 24.0 pg (25.7-33.7) L 01/25/19 07:00 MCHC 32.3 g/dl (32.0-36.0) 01/25/19 07:00 RDW 14.9 % (11.6-15.6) 01/25/19 07:00 Plt Count 276 K/MM3 (134-434) D 01/25/19 07:00 MPV 10.7 fl (7.5-11.1) 01/25/19 07:00 Sodium 142 mmol/L (136-145) 01/25/19 07:00 Potassium 4.2 mmol/L (3.5-5.1) 01/25/19 07:00 Chloride 112 mmol/L (98-107) H 01/25/19 07:00 Carbon Dioxide 24 mmol/L (21-32) 01/25/19 07:00 Anion Gap 6 MMOL/L (8-16) L 01/25/19 07:00 BUN 10.3 mg/dL (7-18) 01/25/19 07:00 Creatinine 0.7 mg/dL (0.55-1.3) 01/25/19 07:00 Est GFR (CKD-EPI)AfAm 131.94 01/25/19 07:00 Est GFR (CKD-EPI)NonAf 113.84 01/25/19 07:00 Random Glucose 79 mg/dL (74-106) 01/25/19 07:00 Calcium 8.9 mg/dL (8.5-10.1) 01/25/19 07:00 Total Bilirubin 0.9 mg/dL (0.2-1) 01/25/19 07:00 AST 34 U/L (15-37) 01/25/19 07:00 ALT 22 U/L (13-61) 01/25/19 07:00 Alkaline Phosphatase 61 U/L (45-117) 01/25/19 07:00 Total Protein 6.4 g/dl (6.4-8.2) 01/25/19 07:00 Albumin 3.2 g/dl (3.4-5.0) L 01/25/19 07:00 RPR Titer Nonreactive (NONREACTIVE) 01/25/19 07:00 Assessment: 01/26/19 10:57 withdrawal symptom Plan: continue detox
[2019-01-26] MEDS: PRENATAL VITAMINS W/ FOLIC ACID TABLET (FP) PO SCH (10:59)
--- NOTE | 2019-01-26 11:36 | PN ---
[facility] Progress Note Note: patient would like to see psychiatrist,history of anxiety,depression and insomnia
[2019-01-26] MEDS ORDERED: PNEUMOC 13-VAL CONJ-DIP CRM/PF 0.5 ML DISP.SYRIN IM ONE (12:00)
[2019-01-26] MEDS ORDERED: PNEUMOCOCCAL 23 VACCINE 0.5 ML VIAL IM ONE (12:00)
[2019-01-26] MEDS: chlordiazePOXIDE HCL 10 MG CAPSULE PO PRN (18:19)
--- NOTE | 2019-01-26 18:50 | PN ---
[facility] Progress Note Note: Called by nursing staff to order medications for patient admitted to detox on . Medication reconciliation done. Wellbutrin XL 300 mg/day and Abilify 30 mg/hs ordered
[2019-01-26] MEDS: THIAMINE HCL 100 MG TABLET (FP) PO SCH (22:24)
[2019-01-26] MEDS: ARIPiprazole 15 MG TABLET PO SCH (22:24)
[2019-01-27] MEDS: chlordiazePOXIDE HCL 10 MG CAPSULE PO PRN (00:35)
[2019-01-27] MEDS ORDERED: chlordiazePOXIDE HCL 10 MG CAPSULE PO PRN (05:00)
[2019-01-27] MEDS: chlordiazePOXIDE HCL 10 MG CAPSULE PO SCH ×3 (06:30→21:04)
--- NOTE | 2019-01-27 08:33 | CONSULT ---
[facility] Psychiatric Consult - Data Date of interview: 01/27/19 Admission source: Self-referred Identifying data: Ms Moon is a 33 years old single Black female, unemployed receiving SSI, homeless living in the intermediate seeking detox treatment for alcohol, opioid, cocaine and benzodiazepine Substance Abuse History: Reports history of alcohol, heroin, cocaine and ativan use. Refer to addiction counselor's summary for further informatio Medical History: Significant for hepatitis C and fibromyalgia. Patient is on methadone 100 mg/day from [facility]. Smokes 2 cigarettes daily Psychiatric History: Reports being diagnosed with MDD/Anxiety and currently receiving outpatient psychiatric treatment at [facility]. She is currently prescribed Wellbutrin 300 mg/day and Abilify 30 mg/hs. Denies history of previous psychiatric hospitalizations or suicidal attempt. At present, denies experiencing depressive symptoms, S/H ideations. However, reports feeling anxious and sleeping poorly Physical/Sexual Abuse/Trauma History: Denies history of emotional, physical or sexual abuse as well as DV relationship. No service Additional Comment: Denies criminal history Mental Status Exam - Mental Status Exam Alert and Oriented to: Time, Place, Person Cognitive Function: Fair Patient Appearance: Well Groomed Mood: Anxious Affect: Appropriate Patient Behavior: Cooperative Speech Pattern: Clear Voice Loudness: Normal Thought Process: Intact, Goal Oriented Hallucinations: Denies Suicidal Ideation: Denies Homicidal Ideation: Denies Insight/Judgement: Poor Sleep: Poorly Appetite: Good Muscle strength/Tone: Normal Gait/Station: Normal Psychiatric Findings - Problem List ([place] 1, 2,3) (1) MDD (major depressive disorder) Current Visit: Yes Status: Chronic (2) Substance-induced anxiety disorder Current Visit: Yes Status: Acute (3) Substance-induced sleep disorder Current Visit: Yes Status: Acute (4) Alcohol dependence with uncomplicated withdrawal Current Visit: Yes Status: Acute (5) Cocaine dependence, uncomplicated Current Visit: Yes Status: Acute (6) Sedative, hypnotic or anxiolytic use disorder, mild, abuse Current Visit: Yes Status: Acute (7) Opioid dependence on agonist therapy Current Visit: Yes Status: Chronic (8) Nicotine dependence, uncomplicated Current Visit: Yes Status: Chronic Qualifiers: Nicotine product type: cigarettes Qualified Code(s): F17.210 - Nicotine dependence, cigarettes, uncomplicated (9) History of fibromyalgia Current Visit: Yes Status: Chronic (10) History of hepatitis C Current Visit: Yes Status: Chronic Comment: Not treated - Initial Treatment Plan Initial Treatment Plan: 1) Continue Wellbutrin 300 mg po daily and Abilify 30 mg po HS. 2) Start Vistoril 50 mg po Q 4hrs prn for anxiety and Melatonin 5 mg po HS prn for insomnia. 3) Continue inpatient detoxification
[2019-01-27] MEDS ORDERED: ONDANSETRON *ODT* 4 MG TABLET SL ONE (09:28)
--- NOTE | 2019-01-27 09:31 | PN ---
S CIWA - CIWA Score Nausea/Vomitin Muscle Tremors: 2 Anxiety: 3 Agitation: 2 Paroxysmal Sweats: 1-Minimal Palms Moist Orientation: 0-Oriented Tacttile Disturbances: 1-Very Mild Itch/Numbness Auditory Disturbances: 0-None Visual Disturbances: 0-None Headache: 1-Very Mild CIWA-Ar Total Score: 13 BHS COWS - Scale Resting Pulse: 0= [place] 80 or Below Sweatin= Chills/Flushing Restless Observation: 1= Difficult to Sit Still Pupil Size: 0= Normal to Room Light Bone or Joint Aches: 2= Severe Diffuse Aches Runny Nose/ Eye Tearin= Runny Nose/Eyes GI Upset > 30mins: 2= Nausea/Diarrhea Tremor Observation of Outstretched Hands: 1= Tremor [place], Not Seen Yawning Observation: 1= 1-2x During Session Anxiety or Irritability: 2=Irritable/Anxious Goose Flesh Skin: 0=Smooth Skin COWS Score: 12 S Progress Note (SOAP) Subjective: anxious, headache, body aches, nausea Objective: 01/27/19 09:31 Vital Signs Temperature 98.8 F 01/27/19 09:14 Pulse Rate 65 01/27/19 09:14 Respiratory Rate 18 01/27/19 09:14 Blood Pressure 105/61 01/27/19 09:14 O2 Sat by Pulse Oximetry (%) Laboratory Last Values WBC 4.1 K/mm3 (4.0-10.0) 01/25/19 07:00 RBC 4.99 M/mm3 (3.60-5.2) 01/25/19 07:00 Hgb 12.0 GM/dL (10.7-15.3) 01/25/19 07:00 Hct 37.1 % (32.4-45.2) 01/25/19 07:00 MCV 74.4 fl (80-96) L 01/25/19 07:00 MCH 24.0 pg (25.7-33.7) L 01/25/19 07:00 MCHC 32.3 g/dl (32.0-36.0) 01/25/19 07:00 RDW 14.9 % (11.6-15.6) 01/25/19 07:00 Plt Count 276 K/MM3 (134-434) D 01/25/19 07:00 MPV 10.7 fl (7.5-11.1) 01/25/19 07:00 Sodium 142 mmol/L (136-145) 01/25/19 07:00 Potassium 4.2 mmol/L (3.5-5.1) 01/25/19 07:00 Chloride 112 mmol/L (98-107) H 01/25/19 07:00 Carbon Dioxide 24 mmol/L (21-32) 01/25/19 07:00 Anion Gap 6 MMOL/L (8-16) L 01/25/19 07:00 BUN 10.3 mg/dL (7-18) 01/25/19 07:00 Creatinine 0.7 mg/dL (0.55-1.3) 01/25/19 07:00 Est GFR (CKD-EPI)AfAm 131.94 01/25/19 07:00 Est GFR (CKD-EPI)NonAf 113.84 01/25/19 07:00 Random Glucose 79 mg/dL (74-106) 01/25/19 07:00 Calcium 8.9 mg/dL (8.5-10.1) 01/25/19 07:00 Total Bilirubin 0.9 mg/dL (0.2-1) 01/25/19 07:00 AST 34 U/L (15-37) 01/25/19 07:00 ALT 22 U/L (13-61) 01/25/19 07:00 Alkaline Phosphatase 61 U/L (45-117) 01/25/19 07:00 Total Protein 6.4 g/dl (6.4-8.2) 01/25/19 07:00 Albumin 3.2 g/dl (3.4-5.0) L 01/25/19 07:00 RPR Titer Nonreactive (NONREACTIVE) 01/25/19 07:00 Assessment: 01/27/19 11:45 Aox3 no distress, anxious, full ROM ambulating in the unit withdrawal sx Plan: increase po fluids zofran prn for nausea continue detox continue to monitor
[2019-01-27] MEDS ORDERED: METHADONE HCL 10 MG TABLET (FOR DETOX USE ONLY) PO ONE (10:00)
[2019-01-27] MEDS: PRENATAL VITAMINS W/ FOLIC ACID TABLET (FP) PO SCH (10:18)
[2019-01-27] MEDS: GABAPENTIN 100 MG CAPSULE (FP) PO SCH ×2 (14:11→22:09)
--- NOTE | 2019-01-27 14:16 | PN ---
Psychiatric Progress Note Vital Signs: Vital Signs Period Temp Pulse Resp BP Sys/Jacobs Pulse Ox Last 24 Hr 98.2 F-98.9 F 59-86 16-18 92-126/61-71 Date of Session: 01/27/19 Chief Complaint:: Patient agitated, talking to herslf HPI: Patient with history of MDD and polysubstance use(alcoho, cocaine, ativan) on MMTP was admitted to detox on 01/26/19. Nursing staff reports that patient was agitated and talking to herself in the hallway. Reportedly, her roomate heard her describing sexual activities loudly Current Medications: Active Medications Generic Name Dose Route Start Last Admin Trade Name Freq PRN Reason Stop Dose Admin Acetaminophen 650 mg 01/25/19 02:08 01/26/19 05:55 Tylenol - PO 650 mg Q6H PRN Administration PAIN LEVEL 4 - 6 Acetaminophen 650 mg 01/25/19 02:08 Tylenol - PO Q6H PRN FEVER Al Hydroxide/Mg Hydroxide 30 ml 01/25/19 02:08 Mylanta Oral Suspension - PO Q6H PRN DYSPEPSIA Aripiprazole 30 mg 01/26/19 22:00 01/26/19 22:24 Abilify PO 30 mg HS TD Administration Bismuth Subsalicylate 524 mg 01/25/19 02:08 Pepto-Bismol - PO Q1H PRN DIARRHEA Bupropion HCl 300 mg 01/26/19 19:15 01/27/19 10:18 Wellbutrin Xl - PO 300 mg DAILY TD Administration Chlordiazepoxide HCl 10 mg 01/27/19 05:00 Librium - PO 01/28/19 05:00 Q12H PRN Signs/symptoms of Withdrawal Chlordiazepoxide HCl 10 mg 01/27/19 05:00 01/27/19 06:30 Librium - PO 01/28/19 05:01 10 mg Q8H TD Administration Clonidine 0.1 mg 01/25/19 02:08 Catapres - PO 01/27/19 23:55 Q6H PRN Withdrawal Symptoms Eucalyptus/Menthol/Phenol/Sorbitol 1 each 01/25/19 02:08 Cepastat Lozenge - MM 01/31/19 02:08 Q4H PRN SORE THROAT Gabapentin 100 mg 01/27/19 14:00 Neurontin - PO TID TD Hydroxyzine Pamoate 50 mg 01/27/19 08:40 Vistaril - PO Q4H PRN ANXIETY Ibuprofen 400 mg 01/25/19 02:08 01/25/19 02:42 Motrin - PO 400 mg Q6H PRN Administration PAIN LEVEL 6-10 Magnesium Citrate 300 ml 01/25/19 02:08 Citroma - PO Q48H PRN CONSTIPATION Magnesium Hydroxide 30 ml 01/25/19 02:08 Milk Of Magnesia - PO PRN PRN CONSTIPATION Melatonin 5 mg 01/25/19 02:08 Melatonin PO HS PRN INSOMNIA Methadone HCl 5 mg 01/29/19 06:00 Dolophine - PO 01/29/19 06:01 ONCE@0600 ONE Methadone HCl 10 mg 01/28/19 10:00 Dolophine - PO 01/28/19 10:01 ONCE ONE Methocarbamol 500 mg 01/25/19 02:08 01/26/19 05:55 Robaxin - PO 01/31/19 02:08 500 mg Q6H PRN Administration MUSCLE SPASMS Nicotine Polacrilex 2 mg 01/25/19 02:08 01/26/19 11:01 Nicorette Gum - BUC 2 mg Q2H PRN Administration NICOTINE REPLACEMENT RX Multivit/Folic Acid/Iron 1 tab 01/25/19 10:00 01/27/19 10:18 Vitamins (Sjr) - PO 1 tab DAILY TD Administration Thiamine HCl 100 mg 01/25/19 22:00 01/26/19 22:24 Vitamin B1 - PO 100 mg HS TD Administration Medication(s) Change(s): 1) Continue Wellbutrin 300 mg/day and Abilify 30 mg/ hs. 2) Start Haldol 2 mg po Q 4 hrs prn for agitation and psychosis. 3) Psychiatry follow up Current Side Effect: No Lab tests ordered: Yes Lab tests reviewed: Yes Provider note:: Patient seen by jingle writer earlier this morning and was continued on her medications(wellbutrin 300 mg/day, Abilify 30 mg/hs). She related oddly but she was calm and cooperative. Told jingle writer that her boyfriend is unfaithful to her. He is cheating on her with a prostitute. She said that this has been going on since she was 14. She denies hearing voices as well S/H ideations. She shows no preoccupations with internal stimuli during the interview but she appears odd Total face to face time:: 25 Mental Status Exam - Mental Status Exam Alert and Oriented to: Time, Place, Person Cognitive Function: Fair Patient Appearance: Well Groomed Mood: Depressed Affect: Blunted, Constricted Patient Behavior: Cooperative Speech Pattern: Clear Voice Loudness: Normal Thought Process: Intact, Goal Oriented Thought Disorder: Not Present Hallucinations: Denies Suicidal Ideation: Denies Homicidal Ideation: Denies Insight/Judgement: Poor Sleep: Poorly Appetite: Good Muscle strength/Tone: Normal Gait/Station: Normal Psychiatric Treatment Plan - Problem List (1) MDD (major depressive disorder) Current Visit: Yes (2) Substance-induced anxiety disorder Current Visit: Yes (3) Substance-induced sleep disorder Current Visit: Yes (4) Alcohol dependence with uncomplicated withdrawal Current Visit: Yes (5) Cocaine dependence, uncomplicated Current Visit: Yes (6) Sedative, hypnotic or anxiolytic use disorder, mild, abuse Current Visit: Yes (7) Opioid dependence on agonist therapy Current Visit: Yes (8) Nicotine dependence, uncomplicated Current Visit: Yes Qualifiers: Nicotine product type: cigarettes Qualified Code(s): F17.210 - Nicotine dependence, cigarettes, uncomplicated (9) History of fibromyalgia Current Visit: Yes (10) History of hepatitis C Current Visit: Yes Comment: Not treated Initial treatment plan: 1) Continue Wellbutrin 300 mg po daily and Abilify 30 mg po HS. 2) Hadol 2 mg po Q4hrs prn for agitation and psychosis. 3) Will endorse case ton Dr Rhodes for follow up tomorrow
[2019-01-27] MEDS: hydrOXYzine PAMOATE 50 MG CAPSULE (FP) PO PRN ×2 (15:07→22:09)
[2019-01-27] MEDS: HALOPERIDOL LACTATE 2 MG/ML PO PRN (16:23)
[2019-01-27] MEDS: THIAMINE HCL 100 MG TABLET (FP) PO SCH (22:09)
[2019-01-27] MEDS: ARIPiprazole 15 MG TABLET PO SCH (22:53)
[2019-01-28] MEDS: GABAPENTIN 100 MG CAPSULE (FP) PO SCH ×2 (06:27→15:00)
[2019-01-28] MEDS: chlordiazePOXIDE HCL 10 MG CAPSULE PO SCH (06:27)
[2019-01-28] MEDS ORDERED: METHADONE HCL 10 MG TABLET (FOR DETOX USE ONLY) PO ONE (10:00)
--- NOTE | 2019-01-28 10:11 | PN ---
[facility] CIWA - CIWA Score Nausea/Vomitin-No Nausea/No Vomiting Muscle Tremors: 1-None Visible, but [place] Anxiety: 2 Agitation: 1-Slight > Activity Paroxysmal Sweats: 3 Orientation: 0-Oriented Tacttile Disturbances: 1-Very Mild Itch/Numbness Auditory Disturbances: 0-None Visual Disturbances: 0-None Headache: 2-Mild CIWA-Ar Total Score: 10 BHS COWS - Scale Resting Pulse: 1= [place] 81-100 Sweatin= Chills/Flushing Restless Observation: 1= Difficult to Sit Still Pupil Size: 0= Normal to Room Light Bone or Joint Aches: 2= Severe Diffuse Aches Runny Nose/ Eye Tearin= None GI Upset > 30mins: 0= None Tremor Observation of Outstretched Hands: 2= Slight Tremor Visible Yawning Observation: 1= 1-2x During Session Anxiety or Irritability: 2=Irritable/Anxious Goose Flesh Skin: 0=Smooth Skin COWS Score: 10 S Progress Note (SOAP) Subjective: c/o irritability, anxiety, sweats, and headache. Objective: 01/28/19 10:09 Vital Signs 01/28/19 01/28/19 03:30 06:00 Temperature 97.7 F Pulse Rate 91 H Respiratory 18 16 Rate Blood Pressure 92/52 L Lab Results WBC 4.1 K/mm3 (4.0-10.0) 01/25/19 07:00 RBC 4.99 M/mm3 (3.60-5.2) 01/25/19 07:00 Hgb 12.0 GM/dL (10.7-15.3) 01/25/19 07:00 Hct 37.1 % (32.4-45.2) 01/25/19 07:00 MCV 74.4 fl (80-96) L 01/25/19 07:00 MCHC 32.3 g/dl (32.0-36.0) 01/25/19 07:00 RDW 14.9 % (11.6-15.6) 01/25/19 07:00 Plt Count 276 K/MM3 (134-434) D 01/25/19 07:00 Sodium 142 mmol/L (136-145) 01/25/19 07:00 Potassium 4.2 mmol/L (3.5-5.1) 01/25/19 07:00 Chloride 112 mmol/L (98-107) H 01/25/19 07:00 Carbon Dioxide 24 mmol/L (21-32) 01/25/19 07:00 Anion Gap 6 MMOL/L (8-16) L 01/25/19 07:00 BUN 10.3 mg/dL (7-18) 01/25/19 07:00 Creatinine 0.7 mg/dL (0.55-1.3) 01/25/19 07:00 Random Glucose 79 mg/dL (74-106) 01/25/19 07:00 Calcium 8.9 mg/dL (8.5-10.1) 01/25/19 07:00 Labs noted. Assessment: 01/28/19 10:11 AOX3, in no acute distress Full ROM, ambulating in the unit. withdrawal symptoms. Plan: continue detox.
[2019-01-28] MEDS: PRENATAL VITAMINS W/ FOLIC ACID TABLET (FP) PO SCH (10:30)
[2019-01-28] MEDS: HALOPERIDOL LACTATE 2 MG/ML PO PRN (11:34)
--- NOTE | 2019-01-28 14:25 | PN ---
S Progress Note Note: Psychiatry Attending's note (follow-up) : No issue reported by nursing staff. Visited patient at bedside. Found asleep. Resting comfortably. Baseline. Uneventful hospital course.
[2019-01-28 17:34] VITALS: BP 102/62; PULSE 84; TEMP 98.1
--- NOTE | 2019-01-28 18:21 | DS ---
[facility] Detox Discharge Summary Admission Date: 01/24/19 Discharge Date: 01/28/19 - History Present History: Alcohol Dependence, Cannabis Dependence, Cocaine Dependence, Opioid Dependence, Sedative Dependence Pertinent Past History: Hep C - Physical Exam Results Vital Signs: Vital Signs Temperature 98.1 F 01/28/19 17:33 Pulse Rate 84 01/28/19 17:33 Respiratory Rate 18 01/28/19 17:33 Blood Pressure 102/62 01/28/19 17:33 O2 Sat by Pulse Oximetry (%) Pertinent Admission Physical Exam Findings: Withdrawal sx Laboratory Last Values WBC 4.1 K/mm3 (4.0-10.0) 01/25/19 07:00 RBC 4.99 M/mm3 (3.60-5.2) 01/25/19 07:00 Hgb 12.0 GM/dL (10.7-15.3) 01/25/19 07:00 Hct 37.1 % (32.4-45.2) 01/25/19 07:00 MCV 74.4 fl (80-96) L 01/25/19 07:00 MCH 24.0 pg (25.7-33.7) L 01/25/19 07:00 MCHC 32.3 g/dl (32.0-36.0) 01/25/19 07:00 RDW 14.9 % (11.6-15.6) 01/25/19 07:00 Plt Count 276 K/MM3 (134-434) D 01/25/19 07:00 MPV 10.7 fl (7.5-11.1) 01/25/19 07:00 Sodium 142 mmol/L (136-145) 01/25/19 07:00 Potassium 4.2 mmol/L (3.5-5.1) 01/25/19 07:00 Chloride 112 mmol/L (98-107) H 01/25/19 07:00 Carbon Dioxide 24 mmol/L (21-32) 01/25/19 07:00 Anion Gap 6 MMOL/L (8-16) L 01/25/19 07:00 BUN 10.3 mg/dL (7-18) 01/25/19 07:00 Creatinine 0.7 mg/dL (0.55-1.3) 01/25/19 07:00 Est GFR (CKD-EPI)AfAm 131.94 01/25/19 07:00 Est GFR (CKD-EPI)NonAf 113.84 01/25/19 07:00 Random Glucose 79 mg/dL (74-106) 01/25/19 07:00 Calcium 8.9 mg/dL (8.5-10.1) 01/25/19 07:00 Total Bilirubin 0.9 mg/dL (0.2-1) 01/25/19 07:00 AST 34 U/L (15-37) 01/25/19 07:00 ALT 22 U/L (13-61) 01/25/19 07:00 Alkaline Phosphatase 61 U/L (45-117) 01/25/19 07:00 Total Protein 6.4 g/dl (6.4-8.2) 01/25/19 07:00 Albumin 3.2 g/dl (3.4-5.0) L 01/25/19 07:00 RPR Titer Nonreactive (NONREACTIVE) 01/25/19 07:00 - Medication Discharge Medications: Ambulatory Orders Bupropion HCl [Wellbutrin -] 300 mg PO DAILY 12/18/18 Aripiprazole [Abilify] 30 mg PO HS 01/26/19 - Diagnosis (1) Alcohol dependence with uncomplicated withdrawal Current Visit: Yes Status: Acute (2) Cocaine dependence, uncomplicated Current Visit: Yes Status: Acute (3) Opioid dependence with withdrawal Current Visit: Yes Status: Acute (4) Sedative, hypnotic or anxiolytic use disorder, mild, abuse Current Visit: Yes Status: Acute (5) History of hepatitis C Current Visit: Yes Status: Chronic (6) MDD (major depressive disorder) Current Visit: Yes Status: Chronic - AMA Did Patient Leave Against Medical Advice: Yes (Pt. d/c'd AMA on 12/19/18 and 07/20)
[2019-01-29] MEDS ORDERED: METHADONE HCL 5 MG TABLET (FOR DETOX USE ONLY) PO ONE (06:00)
== END 2019-01-28 18:55 | disposition left against medical advice (07) | DRG 894 ==
LOC: YASAS 19:51 → Y6N 23:47
PROVIDERS: ADMIT Surgery; ATTEND Surgery
PROC: HZ2ZZZZ Detoxification Services for Substance Abuse Treatment (ICD-10-PCS; principal; 2019-01-24)
DX: F11.23 Opioid dependence with withdrawal (principal); F14.20 Cocaine dependence, uncomplicated; F19.280 Other psychoactive substance dependence with psychoactive substance-induced anxiety disorder; F19.282 Other psychoactive substance dependence with psychoactive substance-induced sleep disorder; F10.230 Alcohol dependence with withdrawal, uncomplicated; F13.230 Sedative, hypnotic or anxiolytic dependence with withdrawal, uncomplicated; F17.210 Nicotine dependence, cigarettes, uncomplicated; F32.9 Major depressive disorder, single episode, unspecified; B18.2 Chronic viral hepatitis C; M79.7 Fibromyalgia; I49.9 Cardiac arrhythmia, unspecified; S90.812D Abrasion, left foot, subsequent encounter; S90.811D Abrasion, right foot, subsequent encounter; X58.XXXD Exposure to other specified factors, subsequent encounter
CPT/HCPCS: 36415; 80053; 85027; 86593; Q0162

== ENCOUNTER 2019-02-20 11:58 | Inpatient (IN) | payer OTHER ==
[2019-02-20 16:00] VITALS: BMI 23.3
--- NOTE | 2019-02-20 16:46 | HP ---
COWS - Scale Resting Pulse: 0= [place] 80 or Below Sweatin= Chills/Flushing Restless Observation: 0= Sits Still Pupil Size: 0= Normal to Room Light Bone or Joint Aches: 1= Mild Discomfort Runny Nose/ Eye Tearin= None GI Upset > 30mins: 2= Nausea/Diarrhea Tremor Observation: 2= Slight Tremor Visible Yawning Observation: 2= >3x During Session Anxiety or Irritability: 1=Feels Anxious/Irritable Goose Flesh Skin: 0=Smooth Skin COWS Score: 9 CIWA Score Nausea/Vomitin Muscle Tremors: 3 Anxiety: 2 Agitation: 2 Paroxysmal Sweats: No Perspiration Orientation: 1-Uncertain about Date Tacttile Disturbances: 1-Very Mild Itch/Numbness Auditory Disturbances: 0-None Visual Disturbances: 0-None Headache: 3-Moderate CIWA-Ar Total Score: 14 - Admission Criteria OASAS Guidelines: Admission for Medically Managed Detox: Requires at least one of the followin. CIWA greater than 12 2. Seizures within the past 24 hours 3. Delirium tremens within the past 24 hours 4. Hallucinations within the past 24 hours 5. Acute intervention needed for co occurring medical disorder 6. Acute intervention needed for co occurring psychiatric disorder 7. Severe withdrawal that cannot be handled at a lower level of care (continued vomiting, continued diarrhea, abnormal vital signs) requiring intravenous medication and/or fluids 8. Admission [facility] Chief Complaint: alcohol, crack, benzo, and heroin use Allergies/Adverse Reactions: Allergies Allergy/AdvReac Type Severity Reaction Status Date / Time No Known Allergies Allergy Verified 01/24/19 23:12 History of Present Illness: 33 y/o/f here seeking help for alcohol, heroin, crack, and benzodiazepine use. She has been here for detox in November and December of this year. Patient is a poor historian, repeatedly falling asleep during interview. Arousable to verbal stimuli before falling back asleep. She states she has not slept for 2 nights. She has been drinking half a pint a day of liquor daily. She starts to drink early in the morning and if she does not drink she starts to feel sick. She has been using 5 bags of heroin daily, IV use in her hands. She purchases needles from a store. She denies re using or sharing needles. She is using $50 of crack daily. She states she is buying Ativan off the streets. She is taking 2 pills a day but is unsure of the dosage. She has been in a methadone program in the past but states she is not currently taking any a methadone. She is taking Wellbutrin and Abilify for depression and anxiety. She last used alcohol, heroin , and ativan last night and used crack this morning. She denies any history of seizures and blackouts. She states [facility] and the [facility] called an [facility] for her. He was given Narcan by the EMS personnel. - Ebola screening Have you traveled outside of the country in the last 21 days: No Have you had contact with anyone from an Ebola affected area: No Do you have a fever: No - Review of Systems Constitutional: Chills, Loss of Appetite EENT: reports: Nose Congestion Respiratory: reports: Cough, Shortness of Breath Cardiac: reports: No Symptoms Reported GI: reports: Nausea, Abdominal cramping : reports: No Symptoms Reported Musculoskeletal: reports: No Symptoms Reported Integumentary: reports: No Symptoms Reported Neuro: reports: No Symptoms reported Endocrine: reports: No Symptoms Reported Hematology: reports: No Symptoms Reported Psychiatric: reports: No Sypmtoms Reported Other Systems: Reviewed and Negative Patient History - Patient Medical History Hx Asthma: No Hx Chronic Obstructive Pulmonary Disease (COPD): No Hx Cardiac Disorders: No Hx Hypertension: No Hx Seizures: No Hx Diabetes: No Hx Gastrointestinal Disorders: No Hx Genitourinary Disorders: No Hx Sexually Transmitted Disorders: No Hx Renal Disease (ESRD): No Hx Depression: No Hx Suicide Attempt: Yes Hx Bipolar Disorder: No Hx Schizophrenia: No Other Medical History: no suicidal or homcidal ideations - Patient Surgical History Past Surgical History: Yes Hx Neurologic Surgery: No Hx Cataract Extraction: No Hx Cardiac Surgery: No Hx Lung Surgery: No Hx Breast Surgery: No Hx Breast Biopsy: No Hx Abdominal Surgery: No Hx Appendectomy: No Hx Cholecystectomy: No Hx Genitourinary Surgery: No Hx Section: No Hx Orthopedic Surgery: No Other Surgical History: deviated septum Anesthesia Reaction: No - PPD History Date: 12/20/18 Results: Not read - Reproductive History Patient is a Female of Child Bearing Age (11 -55 yrs old): Yes Last Menstrual Period: 02/16/19 Patient : No - Smoking Cessation Smoking history: Current every day smoker Have you smoked in the past 12 months: Yes Aproximately how many cigarettes per day: 5 Hx Chewing Tobacco Use: No Initiated information on smoking cessation: Yes 'Breaking Loose' booklet given: 02/20/19 - Substance & Tx. History Hx Alcohol Use: Yes Substance Use Type: Alcohol, Cocaine, Heroin - Substances abused Heroin Substance route: Injection Frequency: Daily Amount used: 10 bags /day Age of first use: 18 Date of last use: 02/20/19 Crack Substance route: Smoking Frequency: Daily Amount used: 10 bags Age of first use: 33 Date of last use: 02/20/19 Alcohol Substance route: Oral Frequency: Daily Amount used: 2 PTS VODKA Age of first use: 18 Date of last use: 01/24/19 Other Other (specify): alcohol Substance route: Oral Frequency: Daily Amount used: i pinty Age of first use: 18 Date of last use: 02/20/19 Family Disease History - Family Disease History Family History: Denies Admission Physical Exam [facility] - Vital Signs Vital Signs: Vital Signs - 24 hr 02/20/19 15:51 Temperature 97.5 F L Pulse Rate 62 Respiratory 16 Rate Blood Pressure 97/68 - Physical General Appearance: Yes: Other (falling asleep during interview and exam, slow to respond to questions) HEENTM: Yes: EOMI, Normocephalic, Other (miosis or both pupils) Respiratory: Yes: Lungs Clear, Normal Breath Sounds, No Accessory Muscle Use Neck: Yes: Supple Cardiology: Yes: Regular Rhythm, Regular Rate, S1, S2 Abdominal: Yes: Normal Bowel Sounds, Non Tender, Soft. No: Distended, Guarding Extremities: Yes: Normal Capillary Refill, Tremors. No: Swelling Neurological: Yes: Motor Strength 5/5, Other (somnolent on exam, responsive to verbal stimuli) Integumentary: Yes: Dry, Track Moseley (track moseley noted on both arms, scarring on right deltoid from past abscesses) - Diagnostic (1) Alcohol use disorder Current Visit: Yes Status: Acute (2) Cocaine use disorder Current Visit: Yes Status: Acute (3) Opioid use disorder Current Visit: Yes Status: Acute (4) Severe benzodiazepine use disorder Current Visit: Yes Status: Acute Cleared for Admission BHS - Detox or Rehab [facility] Level of Care: Medically Managed Detox Regimen/Protocol: Methadone Breathalyzer - Breathalyzer Breathalyzer: 0 Urine Drug Screen - Test Device Lot number: [id number] Expiration date: 11/29/20 - Control Is test valid?: Yes - Results Drug screen NEGATIVE: No Urine drug screen results: THC-Marijuana, LENARD-Cocaine, MOP-Opiates, OXY- Oxycodone, MTD-Methadone, BAR-Barbiturates, BZO-Benzodiazepines Inpatient Rehab Admission - Rehab Decision to Admit Inpatient rehab admission?: No
[2019-02-20] MEDS ORDERED: BISMUTH SUBSALICYLATE 524 MG/30 ML UD PO PRN (17:26)
[2019-02-20] MEDS ORDERED: MELATONIN 5 MG TABLETS PO PRN (17:26)
[2019-02-20] MEDS ORDERED: cloNIDine HCL 0.1 MG TABLET PO PRN (17:26)
[2019-02-20] MEDS ORDERED: MAGNESIUM HYDROX 2400MG/30ML ORAL SUSPENSION 30 ML CUP PO PRN (17:26)
[2019-02-20] MEDS ORDERED: ACETAMINOPHEN 325 MG TABLET (FP) PO PRN ×2 (17:26)
[2019-02-20] MEDS ORDERED: MENTHOL/PHENOL 1 EACH UD MM PRN (17:26)
[2019-02-20] MEDS ORDERED: MAG HYDROX/AL HYDROX/SIMETH 30 ML UNIT-DOSE CUP PO PRN (17:26)
[2019-02-20] MEDS ORDERED: MAGNESIUM CITRATE 300 ML BOTTLE PO PRN (17:26)
[2019-02-20] MEDS ORDERED: NICOTINE POLACRILEX 2 MG GUM BUC PRN (17:26)
[2019-02-20] MEDS ORDERED: clonazePAM 0.5 MG TABLET PO PRN (17:26)
[2019-02-20] MEDS: METHOCARBAMOL 500 MG TABLET PO PRN (18:38)
[2019-02-20] MEDS: hydrOXYzine HCL 25 MG TABLET (FP) PO PRN (18:38)
[2019-02-20] MEDS ORDERED: ONDANSETRON *ODT* 4 MG TABLET SL PRN (18:44)
--- NOTE | 2019-02-20 19:08 | PN ---
Teaching Attending Note Name of Resident: Jean Duron ATTENDING PHYSICIAN STATEMENT I saw and evaluated the patient. I reviewed the resident's note and discussed the case with the resident. I agree with the resident's findings and plan as documented. SUBJECTIVE:pt here for heroin detox, states [facility] 'd and was sent by EMS to ER. rec'd dose of narcan. Pt transferred here from ER. Pt states she also drinks alcohol and uses cocaine. OBJECTIVE Vital Signs - 24 hr 02/20/19 15:51 Temperature 97.5 F L Pulse Rate 62 Respiratory 16 Rate Blood Pressure 97/68 lethargic able to answer questions, oriented ASSESSMENT AND PLAN: OUD- start heroin detox protocol with methadone
[2019-02-20] MEDS ORDERED: METHADONE HCL 10 MG TABLET (FOR DETOX USE ONLY) PO ONE (22:00)
[2019-02-20] MEDS: THIAMINE HCL 100 MG TABLET (FP) PO SCH (22:06)
[2019-02-21] MEDS: IBUPROFEN 400 MG TABLET (FP) PO PRN (07:34)
[2019-02-21] MEDS ORDERED: METHADONE HCL 5 MG TABLET (FOR DETOX USE ONLY) ONE (09:45)
[2019-02-21] MEDS ORDERED: METHADONE HCL 10 MG TABLET (FOR DETOX USE ONLY) ONE (09:45)
--- NOTE | 2019-02-21 09:45 | PN ---
[facility] CIWA - CIWA Score Nausea/Vomitin-Mild Nausea/No Vomiting Muscle Tremors: 3 Anxiety: 3 Agitation: 3 Paroxysmal Sweats: 1-Minimal Palms Moist Orientation: 2-Disoriented Date<2 days Tacttile Disturbances: 1-Very Mild Itch/Numbness Auditory Disturbances: 0-None Visual Disturbances: 0-None Headache: 0-None Present CIWA-Ar Total Score: 14 S COWS - Scale Resting Pulse: 0= [place] 80 or Below Sweatin= Chills/Flushing Restless Observation: 0= Sits Still Pupil Size: 0= Normal to Room Light Bone or Joint Aches: 1= Mild Discomfort Runny Nose/ Eye Tearin= Nasal Congestion GI Upset > 30mins: 2= Nausea/Diarrhea Tremor Observation of Outstretched Hands: 2= Slight Tremor Visible Yawning Observation: 1= 1-2x During Session Anxiety or Irritability: 1=Feels Anxious/Irritable Goose Flesh Skin: 0=Smooth Skin COWS Score: 9 S Progress Note (SOAP) Subjective: 33 years old female admitted on 02/20/19 for acute alcohol and opiate withdrawal sx management reported clonazapin prn does not manage well with her acute alcohol withdrawal sx requested librium detox her alcohol misuse withdrawal sx stated that she drink 2 pints of volka daily last drank 02/20/19 librium detox regimen addition to methadone detox protocol librium prn discontinue clondine due to low bp psychiatric referral eucerin cream for dry skin Objective: 02/21/19 09:49 Vital Signs Temperature 97.3 F L 02/21/19 06:19 Pulse Rate 69 02/21/19 06:30 Respiratory Rate 16 02/21/19 06:30 Blood Pressure 94/56 L 02/21/19 06:19 O2 Sat by Pulse Oximetry (%) Laboratory Last Values POC Urine HCG, Qual Negative 02/20/19 16:26 02/21/19 09:49 lab pending patient requests klonopin routine bid - tid plus librium discuss risks of low bp related to librium and klonopin Assessment: 02/21/19 09:51 alcohol and opiate withdrawal sx Plan: continue alcohol and opiate detox
[2019-02-21] MEDS ORDERED: METHADONE (DETOX) 20 MG, METHADONE (DETOX) 5 MG PO ONE (10:00)
[2019-02-21] MEDS ORDERED: FLUCONAZOLE 50 MG TABLET PO ONE (10:14)
[2019-02-21] MEDS: PRENATAL VITAMINS W/ FOLIC ACID TABLET (FP) PO SCH (10:49)
[2019-02-21] MEDS: chlordiazePOXIDE HCL 10 MG CAPSULE PO PRN ×2 (10:50→19:54)
[2019-02-21] MEDS ORDERED: SELENIUM SULFIDE 2.25% 180 ML SHAMPOO TP SCH (11:00)
[2019-02-21] MEDS ORDERED: COLLOIDAL OATMEAL 1 BAR EACH TP PRN (11:00)
[2019-02-21] MEDS: MINERAL OIL/PETROLAT/WATER TOPICAL CREAM 113 GM JAR TP SCH ×2 (12:01→22:38)
[2019-02-21 12:13] LABS: HEMATOCRIT 44.8 % (32.4-45.2); HEMOGLOBIN 14.2 GM/dL (10.7-15.3); MCH 23.9 pg (25.7-33.7); MCHC 31.7 g/dl (32.0-36.0); MEAN CELL VOLUME 75.6 fl (80-96); MEAN PLT VOLUME 10.8 fl (7.5-11.1); PLATELET COUNT 211 K/MM3 (134-434); RBC 5.92 M/mm3 (3.60-5.2); RDW 15.2 % (11.6-15.6); WHITE BLOOD COUNT 5.2 K/mm3 (4.0-10.0)
[2019-02-21 12:22] LABS: ALBUMIN 3.7 g/dl (3.4-5.0); BILIRUBIN,TOTAL 0.7 mg/dL (0.2-1); CALCIUM 9.3 mg/dL (8.5-10.1); CREATININE 0.8 mg/dL (0.55-1.3); POTASSIUM 4.9 mmol/L (3.5-5.1); TOT PROT 7.3 g/dl (6.4-8.2)
[2019-02-21] MEDS: VITAMINS A AND D TOPICAL OINTMENT 60 GM TUBE TP SCH ×3 (13:58→23:00)
[2019-02-21] MEDS: chlordiazePOXIDE HCL 25 MG CAPSULE PO SCH ×2 (13:58→22:19)
[2019-02-21] MEDS: SELENIUM SULFIDE 2.5% LOTION 4 OZ. TP SCH (13:59)
[2019-02-21] MEDS: hydrOXYzine HCL 25 MG TABLET (FP) PO PRN ×2 (14:01→19:54)
--- NOTE | 2019-02-21 14:26 | CONSULT ---
[facility] Psychiatric Consult - Data Date of interview: 02/21/19 Admission source: [facility] Identifying data: Readmission to [facility] [place] for this 33 y/o AA female from [place] descent, self-referred for detoxification (heroin, cocaine, alcohol, xanax). Interviewed at [address] [place] [id number]. Patient is single, no dependents, undomiciled ( snf resident) and unemployed. Undisclosed source of income. Substance Abuse History: Discussed with patient in this session. Details in current [facility] report as follows : Smoking history: Current every day smoker. Have you smoked in the past 12 months: Yes. Aproximately how many cigarettes per day: 5. Hx Chewing Tobacco Use: No. Initiated information on smoking cessation: Yes. 'Breaking Loose' booklet given: 02/20/19. - Substance & Tx. History. Hx Alcohol Use: Yes. Substance Use Type: Alcohol, Cocaine, Heroin. - Substances abused. Heroin. Substance route: Injection. Frequency: Daily. Amount used: 10 bags /day. Age of first use: 18. Date of last use: . Crack. Substance route: Smoking. Frequency: Daily. Amount used: 10 bags. Age of first use: 33. Date of last use: 02/20/19. Alcohol. Substance route: Oral. Frequency: Daily. Amount used: 2 PTS VODKA. Age of first use: 18. Date of last use: 01/24/19. Other. Other (specify): alcohol. Substance route: Oral. Frequency: Daily. Amount used: i pinty. Age of first use: 18. Date of last use: 02/20/19 Medical History: Remarkable for hepatitis C and fibromyalgia. Psychiatric History: Patient denies history of psychiatric hospitalizations. Ms Moon declares that she sees a psychiatrist at the [facility] clinic for medication management (wellbutrin 300 mg/day + ativan 3 mg/day in divided doses + zolpidem 10 mg/hs. Diagnosed with Schizoaffective Disorder, MDD and Anxiety Disorder. Patient is no longer on methadone maintenance. Denies history of sucide attempts. Questionable historian. Physical/Sexual Abuse/Trauma History: No reported history. Additional Comment: Urine drug screen results: THC-Marijuana, LENARD-Cocaine, MOP- Opiates, OXY-Oxycodone, MTD-Methadone, BAR-Barbiturates, BZO-Benzodiazepines. Noted. Mental Status Exam - Mental Status Exam Alert and Oriented to: Time, Place, Person Cognitive Function: Good Patient Appearance: Well Groomed Mood: Nervous, Anxious, Irritable Affect: Mood Congruent, Labile Patient Behavior: Restless, Fatigued Speech Pattern: Clear Voice Loudness: Normal Thought Process: Goal Oriented Thought Disorder: Not Present Hallucinations: Denies Suicidal Ideation: Denies Homicidal Ideation: Denies Insight/Judgement: Poor Sleep: Poorly, Difficulty falling asleep Appetite: Good Gait/Station: Normal Psychiatric Findings - Problem List ([place] 1, 2,3) (1) Alcohol use disorder Current Visit: Yes Status: Chronic (2) Cocaine use disorder Current Visit: Yes Status: Chronic (3) Opioid use disorder Current Visit: Yes Status: Chronic (4) Severe benzodiazepine use disorder Current Visit: Yes Status: Chronic (5) Nicotine dependence Current Visit: Yes Status: Acute (6) MDD (major depressive disorder) Current Visit: Yes Status: Chronic (7) Substance induced mood disorder Current Visit: Yes Status: Chronic (8) Insomnia Current Visit: Yes Status: Chronic Qualifiers: Insomnia type: unspecified Qualified Code(s): G47.00 - Insomnia, unspecified - Initial Treatment Plan Initial Treatment Plan: Psychoeducation. Sleep hygiene. Detoxification. AA/NA meetings. Will restart wellbutrin 100 mg po bid (9 AM / 2PM) + trazodone 50 mg po hs + abilify 10 mg po hs (reduced dose). Side effects/benefits of each drug are discussed with the patient. Contact established with pharmacist at [facility] # [id number] : patient is not found on file). Records at [facility] revisited (medications confirmed by recent note of Dr Vazquez of 12/2018). Observation.
[2019-02-21] MEDS ORDERED: CLOTRIMAZOLE 1% VAGINAL CREAM WITH APPLICATOR 45 GM TUBE VG SCH (22:00)
[2019-02-21] MEDS ORDERED: ARIPiprazole 10 MG TABLET PO SCH (22:00)
[2019-02-21] MEDS ORDERED: traZODone HCL 50 MG TABLET (FP) PO SCH (22:00)
[2019-02-21] MEDS: THIAMINE HCL 100 MG TABLET (FP) PO SCH (22:19)
[2019-02-21] MEDS: METHOCARBAMOL 500 MG TABLET PO PRN (22:21)
[2019-02-21] MEDS: SODIUM CHLORIDE NASAL SPRAY 44 ML BOTTLE NS SCH (22:23)
[2019-02-22] MEDS: chlordiazePOXIDE HCL 10 MG CAPSULE PO PRN ×2 (03:48→12:01)
[2019-02-22] MEDS: hydrOXYzine HCL 25 MG TABLET (FP) PO PRN (03:49)
[2019-02-22] MEDS: SODIUM CHLORIDE NASAL SPRAY 44 ML BOTTLE NS SCH ×2 (06:03→14:26)
[2019-02-22] MEDS: VITAMINS A AND D TOPICAL OINTMENT 60 GM TUBE TP SCH ×2 (06:05→14:32)
[2019-02-22] MEDS: chlordiazePOXIDE HCL 25 MG CAPSULE PO SCH ×2 (06:38→14:27)
[2019-02-22] MEDS: IBUPROFEN 400 MG TABLET (FP) PO PRN (07:23)
[2019-02-22] MEDS: METHOCARBAMOL 500 MG TABLET PO PRN (07:23)
[2019-02-22] MEDS ORDERED: METHADONE HCL 10 MG TABLET (FOR DETOX USE ONLY) PO ONE (10:00)
[2019-02-22] MEDS: MINERAL OIL/PETROLAT/WATER TOPICAL CREAM 113 GM JAR TP SCH (10:30)
[2019-02-22] MEDS: PRENATAL VITAMINS W/ FOLIC ACID TABLET (FP) PO SCH (10:30)
[2019-02-22] MEDS: buPROPion HCL 100 MG TABLET PO SCH ×2 (10:30→14:31)
--- NOTE | 2019-02-22 10:30 | PN ---
[facility] CIWA - CIWA Score Nausea/Vomitin-Mild Nausea/No Vomiting Muscle Tremors: 2 Anxiety: 4-Mod. Anxious/Guarded Agitation: 2 Paroxysmal Sweats: 1-Minimal Palms Moist Orientation: 0-Oriented Tacttile Disturbances: 0-None Auditory Disturbances: 0-None Visual Disturbances: 0-None Headache: 1-Very Mild CIWA-Ar Total Score: 11 S COWS - Scale Resting Pulse: 2= NM 101-120 Sweatin= Chills/Flushing Restless Observation: 3= Extraneous Movement Pupil Size: 1= Pupils >than Normal Bone or Joint Aches: 2= Severe Diffuse Aches Runny Nose/ Eye Tearin= Nasal Congestion GI Upset > 30mins: 1= Stomach Cramp Tremor Observation of Outstretched Hands: 1= Tremor [place], Not Seen Yawning Observation: 1= 1-2x During Session Anxiety or Irritability: 2=Irritable/Anxious Goose Flesh Skin: 3=Piloerection COWS Score: 18 S Progress Note (SOAP) Subjective: pt c/o being anxious, says her detox is going well but still with anxiety- was seen by MH provider- put on meds. Would like flexeril instead of Robaxin, Aveeno soap. O Vital Signs - 24 hr 02/21/19 02/21/19 02/21/19 14:12 17:48 21:20 Temperature 98.8 F 97.6 F 99.3 F Pulse Rate 70 76 77 Respiratory 18 16 16 Rate Blood Pressure 102/58 L 107/71 104/54 L 02/22/19 02/22/19 02/22/19 03:30 06:38 07:15 Temperature 98.4 F Pulse Rate 57 L 63 Respiratory 18 16 16 Rate Blood Pressure 84/49 L 99/64 02/22/19 09:25 Temperature 98.6 F Pulse Rate 75 Respiratory 16 Rate Blood Pressure 91/55 L Laboratory Tests 02/20/19 02/21/19 02/21/19 16:26 07:00 07:00 WBC 5.2 RBC 5.92 H Hgb 14.2 Hct 44.8 D MCV 75.6 L MCH 23.9 L MCHC 31.7 L RDW 15.2 Plt Count 211 D MPV 10.8 Sodium 140 Potassium 4.9 Chloride 108 H Carbon Dioxide 27 Anion Gap 6 L BUN 13.0 Creatinine 0.8 Est GFR (CKD-EPI)AfAm 112.27 Est GFR (CKD-EPI)NonAf 96.87 Random Glucose 73 L Calcium 9.3 Total Bilirubin 0.7 AST 11 L ALT 17 Alkaline Phosphatase 65 Total Protein 7.3 Albumin 3.7 POC Urine HCG, Qual Negative RPR Titer HIV 1&2 Antibody Screen HIV P24 Antigen 02/21/19 02/21/19 07:00 07:00 WBC RBC Hgb Hct MCV MCH MCHC RDW Plt Count MPV Sodium Potassium Chloride Carbon Dioxide Anion Gap BUN Creatinine Est GFR (CKD-EPI)AfAm Est GFR (CKD-EPI)NonAf Random Glucose Calcium Total Bilirubin AST ALT Alkaline Phosphatase Total Protein Albumin POC Urine HCG, Qual RPR Titer Nonreactive HIV 1&2 Antibody Screen Negative HIV P24 Antigen Negative PE WNL, ambulatory alert and oriented a/p: continue detox protocols- alcohol and heroin. still with anxiety recently started on meds per MH team will give Aveeno and prn flexeril for muscl eaches
[2019-02-22] MEDS: SELENIUM SULFIDE 2.5% LOTION 4 OZ. TP SCH (10:31)
[2019-02-22] MEDS ORDERED: CYCLOBENZAPRINE HCL 5 MG TABLET PO PRN (10:31)
--- NOTE | 2019-02-22 11:12 | PN ---
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
[2019-02-22] MEDS ORDERED: AMMONIUM LACTATE 12% LOTION 225 GM BOTTLE TP SCH (11:15)
[2019-02-22 13:18] VITALS: BP 103/62; PULSE 69; TEMP 97.5
[2019-02-22] MEDS ORDERED: GABAPENTIN 100 MG CAPSULE (FP) PO SCH (14:00)
--- NOTE | 2019-02-22 16:33 | DS ---
[facility] Detox Discharge Summary Admission Date: 02/20/19 Discharge Date: 02/22/19 - History Pertinent Past History: Pt states that she needs to leave- left AMA. Medications are not enough for her. - Physical Exam Results Vital Signs: Vital Signs Temperature 97.5 F L 02/22/19 13:39 Pulse Rate 69 02/22/19 13:39 Respiratory Rate 18 02/22/19 13:39 Blood Pressure 103/62 02/22/19 13:39 O2 Sat by Pulse Oximetry (%) - Medication Discharge Medications: Ambulatory Orders Bupropion HCl [Wellbutrin -] 300 mg PO DAILY 12/18/18 Aripiprazole [Abilify] 30 mg PO HS 01/26/19 - AMA Did Patient Leave Against Medical Advice: Yes
[2019-02-22] MEDS ORDERED: CLOTRIMAZOLE 1% VAGINAL CREAM WITH APPLICATOR 45 GM TUBE VG SCH (22:00)
[2019-02-23] MEDS ORDERED: chlordiazePOXIDE 5 MG CAPSULE PO SCH (05:00)
[2019-02-23] MEDS ORDERED: METHADONE (DETOX) 10 MG, METHADONE (DETOX) 5 MG PO ONE (10:00)
[2019-02-23] MEDS ORDERED: NICOTINE 21 MG/24 HOURS TOPICAL PATCH TD SCH (10:00)
[2019-02-24] MEDS ORDERED: chlordiazePOXIDE HCL 10 MG CAPSULE PO SCH (05:00)
[2019-02-24] MEDS ORDERED: METHADONE HCL 10 MG TABLET (FOR DETOX USE ONLY) PO ONE (10:00)
[2019-02-25] MEDS ORDERED: chlordiazePOXIDE HCL 10 MG CAPSULE PO ONE (05:00)
[2019-02-25] MEDS ORDERED: METHADONE HCL 5 MG TABLET (FOR DETOX USE ONLY) PO ONE (06:00)
== END 2019-02-22 15:30 | disposition left against medical advice (07) | DRG 894 ==
LOC: YASAS 11:58 → Y3N 18:08
PROVIDERS: ADMIT Surgery; ATTEND Surgery
PROC: HZ2ZZZZ Detoxification Services for Substance Abuse Treatment (ICD-10-PCS; principal; 2019-02-20)
DX: F19.230 Other psychoactive substance dependence with withdrawal, uncomplicated (principal); F14.20 Cocaine dependence, uncomplicated; F11.23 Opioid dependence with withdrawal; F10.230 Alcohol dependence with withdrawal, uncomplicated; F13.230 Sedative, hypnotic or anxiolytic dependence with withdrawal, uncomplicated; F17.210 Nicotine dependence, cigarettes, uncomplicated; F32.9 Major depressive disorder, single episode, unspecified; F19.24 Other psychoactive substance dependence with psychoactive substance-induced mood disorder; G47.00 Insomnia, unspecified; M79.7 Fibromyalgia
CPT/HCPCS: 36415; 80053; 81025; 85027; 86480; 86593; 87389; Q0162